=== PATIENT | female | born 1960 | race Caucasian/White ===

== ENCOUNTER 2024-02-03 10:42 | Inpatient (IN) ==
[2024-02-03] MEDS: SODIUM CHLORIDE 0.9% 1,000 ML IV STA (11:02)
--- NOTE | 2024-02-03 11:06 | Emergency Department Note ---
Impression & Plan Acute cholecystitis, Right upper quadrant abdominal pain ED Provider Note NAME: JEMIMA MASTERS AGE: 63 SEX: F : 1960 ARRIVES VIA: Walk-In INFORMANT: Patient, ED PROVIDER(S): Jairon Ramírez DO CHIEF COMPLAINT: Abdominal pain HPI: The patient is a 63-year-old female who presented to the emergency department for an evaluation of abdominal pain. The patient describes upper abdominal pain right greater than left. She states the pain does somewhat come up into her chest. She denies having any vomiting or. She denies having any black or tarry stools. The patient called her family doctor and was told to go directly to the emergency department. She denies having any lower GI bleeding. She said no diarrhea. The patient still has her gallbladder. She states the pain is not worsened with exertion or taking a deep breath. ROS: See above HPI for pertinent positives & negatives. A total of 10 systems reviewed and were otherwise negative. PAST MEDICAL HISTORY: See Below PAST SURGICAL HISTORY: See Below FAMILY HISTORY: See Below SOCIAL HISTORY: See Below HOME MEDICATIONS: See Below ALLERGIES: See Below VITALS: See Below PHYSICAL EXAMINATION: GENERAL: The patient is awake and alert. The patient is very anxious and uncomfortable appearing. EYES: The conjunctivae are clear. The pupils are round and reactive. EARS, NOSE, MOUTH AND THROAT: The nose is without any evidence of any deformity. NECK: The neck is nontender and supple. RESPIRATORY: Normal respiratory effort is noted there is no evidence of wheezing rhonchi or rales CARDIOVASCULAR: Regular rate and rhythm noted there no murmurs rubs or gallops normal S1 normal S2. GASTROINTESTINAL: The abdomen is soft and mildly distended. There is right upper quadrant tenderness palpation which is moderate. MUSCULOSKELETAL/EXTREMITIES: There is no evidence of gross deformity full range of motion is noted in the hips and shoulders. SKIN: There is no obvious evidence of any rash. There are no petechiae, pallor or cyanosis noted. NEUROLOGIC: Patient is awake alert and oriented x3 MEDICAL DECISION MAKING: The patient is a 63-year-old female who presented to the emergency department for abdominal pain. The patient started having right upper quadrant abdominal pain early this morning. The patient's history and physical exam appear to be consistent with cholecystitis. Radiographic studies were obtained including an ultrasound which does appear to be consistent with cholecystitis. The patient had no ductal dilatation. Bilirubin was normal. I discussed the patient's laboratory and radiographic studies with her. I discussed her condition with the on-call general surgical group as well as the on-call [facility] hospitalist group. They have agreed to evaluate the patient in the emergency department for further management and disposition. The patient was treated with IV antibiotics and IV fluids. She was also treated with IV pain medication and antiemetics. Triage Nursing notes reviewed. Prior medical records reviewed Vital Signs: reviewed and remarkable for elevated blood pressure. Differential diagnosis: Etiologies such as appendicitis, diverticulitis, obstruction, inflammatory bowel disease, renal colic, PUD, biliary pathology, pancreatitis, mesenteric ischemia, aortic pathology, infections, genitourinary, UTI, perforated viscus, as well as others were entertained. ER treatment provided: See below Diagnostics interpreted by me: ECG: EKG was obtained in the emergency department. My interpretation is normal sinus rhythm at 77 bpm. There is no ectopy. There is no acute ST segment abnormalities noted. No previous tracing was available Cardiac Monitoring: An order was placed for continuous cardiac monitoring. The monitor shows a rate of 74 bpm with sinus rhythm. Laboratory studies: As stated above and show below. Imaging studies: See below. Radiographic imaging was reviewed by myself Consultation(s): I discussed this case with Lilli who is on-call for the general surgical group. She is agreed to evaluate the patient in the emergency department. I discussed this case with Tereza who is on-call for the [facility] hospitalist group. Past Med/Surg History Medical History (Updated 02/03/24 @ 14:41 by Jairon Ramírez DO) History of melanoma History of endometrial biopsy BENIGN Osteoarthritis Overactive bladder Diabetes mellitus, type 2 Hypothyroidism History of skin cancer Low iron Hypertension Hyperlipidemia Sleep apnea CPAP Surgical History History of colonoscopy History of tooth extraction History of tonsillectomy and adenoidectomy History of nasal cauterization History of nasal surgery History of bladder surgery BLADDER SLING Family History Mother Alzheimer disease Family history of diabetes mellitus Father Family history of diabetes mellitus Other No family history of adverse response to anesthesia Social History Smoking Status: Never smoker Second Hand Exposure: Yes; Hx Alcohol Use: Yes Preferred Language: Greenlandic Seed Technician Required: No Beliefs That Will Affect Care: None Current Living Situation: Alone Feels Safe at Home: Yes Assistive Devices: CPAP and Glasses Allergies Allergies Allergy/AdvReac Type Severity Reaction Status Date / Time No Known Drug Allergies Allergy Verified 03/06/21 13:00 Home Meds Home Medications Medication Instructions Recorded Confirmed aspirin 81 mg tablet 81 mg PO QAM 01/10/20 02/03/24 levothyroxine 50 mcg tablet 50 mcg PO QAM 01/10/20 02/03/24 lisinopril 10 mg tablet 10 mg PO QAM 01/10/20 02/03/24 atorvastatin 20 mg tablet 20 mg PO HS 03/06/21 02/03/24 cholecalciferol (vitamin D3) 25 25 mcg PO QAM 03/06/21 02/03/24 mcg (1,000 unit) tablet (Vitamin D3) estradiol 4 mcg vaginal insert 4 mcg vaginal DAILY 02/03/24 02/03/24 Results & Data (ED) Vital Signs Vital Signs - 24 hr 02/03/24 10:45 02/03/24 13:13 02/03/24 13:57 Temperature 36.2 C L Temperature Source Temporal Artery Scan Pulse Rate 78 78 Pulse Rate [Apical] 74 Pulse Rhythm Regular Pulse Strength Normal Respiratory Rate 20 20 Respiratory Effort / Characteristics Non-Labored Spontaneous Non-Labored Spontaneous Respiratory Depth Normal Normal Respiratory Pattern Regular Blood Pressure 145/63 H Blood Pressure [Left Arm] 163/73 H Blood Pressure Mean 90 Blood Pressure Mean [Left Arm] 103 Blood Pressure Position Sitting Pulse Oximetry 98 97 Oxygen Delivery Method Room Air Room Air Sepsis Recent Fever Within 48 Hours No Sepsis New/Unexplained Change in Mental Status No Sepsis Action Taken by Nursing No Action Required Home Medications Current Medication List: was personally reviewed by me Laboratory Data Attestation: I reviewed the patient's lab results. 02/03/24 10:51 02/03/24 10:51 Lab Results 02/03/24 Range/Units 10:51 WBC 14.56 H (4.8-10.8) K/ul RBC 4.45 (4.20-5.40) M/uL Hgb 12.8 (12.0-16.0) g/dl Hct 38.9 (37.0-47.0) % MCV 87.4 (80.0-100.0) fL MCH 28.8 (25.0-34.0) pg MCHC 32.9 (32.0-36.0) g/dL RDW Std Deviation 44.2 (36.4-46.3) fL RDW Coeff of Hermes 13.8 (11.5-14.5) % Plt Count 412 H (130-400) K/uL MPV 9.7 (9.4-12.4) fL Immature Gran % (Auto) 0.4 % Neut % (Auto) 83.6 % Lymph % (Auto) 11.1 % [place] % (Auto) 4.3 % Eos % (Auto) 0.2 % Baso % (Auto) 0.4 % Neut # (Auto) 12.17 H (1.40-6.50) K/uL Lymph # (Auto) 1.61 (1.20-3.40) K/uL [place] # (Auto) 0.63 H (0.11-0.59) K/uL Eos # (Auto) 0.03 (0.00-0.50) K/uL Baso # (Auto) 0.06 (0.00-0.20) K/uL Immature Gran # (Auto) 0.06 (0.01-0.20) K/uL Sodium 136 (136-145) mmol/L Potassium 4.0 (3.5-5.1) mmol/L Chloride 105 (98-107) mmol/L Carbon Dioxide 24 (21-32) mmol/L Anion Gap 7 (3-11) BUN 18 (6-23) mg/dl Creatinine 0.74 (0.6-1.2) mg/dl Est Cr Clr Drug Dosing 76.1 ml/min Est GFR ( Amer) 98.5 ml/min Est GFR (Non-Af Amer) 85.0 ml/min BUN/Creatinine Ratio 24.3 H (10-20) Glucose 155 H (70-99(Fasting)) mg/dl Calcium 9.3 (8.6-10.3) mg/dl Total Bilirubin 0.4 (0.2-1.0) mg/dl AST 14 (13-39) U/L ALT 12 (7-52) U/L Alkaline Phosphatase 99 (34-104) U/L Troponin I High Sens 3.3 (0-14) pg/ml Total Protein 7.4 (6.0-8.3) gm/dl Albumin 4.2 (3.4-5.0) gm/dl Globulin 3.2 (2.5-4.0) gm/dl Albumin/Globulin Ratio 1.3 (0.9-2) Lipase 10 L (11-82) U/L Urine Color Dark Yellow Urine Appearance Turbid A (Clear) Urine pH 5.5 (4.5-7.5) Ur Specific [place] 1.024 (1.000-1.030) Urine Protein Negative (Negative) Urine Glucose (UA) Negative (Negative) Urine Ketones Trace H (Negative) Urine Blood Negative (Negative) Urine Nitrite Negative (Negative) Urine Bilirubin Negative (Negative) Urine Urobilinogen Negative (Negative) Ur Leukocyte Esterase Negative (Negative) Urine WBC (Auto) 0-5 (0-5) /hpf Urine RBC (Auto) 3-5 H (0-2) /hpf U Hyaline Cast (Auto) 0-2 (0-2) /lpf U Epithel Cells (Auto) 3-5 H (0-2) /hpf Urine Bacteria (Auto) None Seen (None Seen) Administered Medications Discontinued Medications Fentanyl Citrate (Fentanyl Citrate Pf 100 Mcg/2 Ml Vial) 50 mcg IV Q15M PRN PRN Reason: Pain Stop: 02/17/24 12:52 Last Admin: 02/03/24 13:01 Dose: 50 mcg Documented By: HS Sodium Chloride (Nss) 1,000 mls @ 999 mls/hr IV .Q1H1M STA Stop: 02/03/24 11:59 Last Infusion: 02/03/24 12:03 Dose: Infused Documented By: Admin: 02/03/24 11:02 Dose: 999 mls/hr Documented By: HS Cefoxitin Sodium (Mefoxin) 2,000 mg in 60 mls @ 100 mls/hr IV NOW STA Stop: 02/03/24 13:28 Last Infusion: 02/03/24 13:44 Dose: Infused Documented By: Admin: 02/03/24 13:01 Dose: 100 mls/hr Documented By: HS Ondansetron HCl (Ondansetron Inj 2 Mg/Ml 2 Ml Vial) 4 mg IV NOW STA Stop: 02/03/24 12:54 Last Admin: 02/03/24 13:01 Dose: 4 mg Documented By: Imaging Data Attestation: I personally reviewed and interpreted this imaging study as follows: My Impression: 1 view chest x-ray was obtained in the emergency department. My interpretation is no free air or infiltrate, final report below. KUB was obtained in the emergency department my interpretation is no free air or signs of bowel obstruction, final report below Radiologist's Impression: Chest X-Ray 02/03/24 11:00 SINGLE VIEW CHEST CLINICAL HISTORY: Upper abdominal pain. Atypical chest pain. FINDINGS: An AP, portable, upright chest radiograph is obtained. No prior studies are available for comparison at the time of dictation. The cardiomediastinal silhouette is unremarkable. The lungs and pleural spaces are clear. No pneumothorax is seen. The bony thorax is grossly intact. IMPRESSION: No active disease in the chest. ACT 112: Negative or not required by law. Electronically signed by: Tamir Wyatt M.D. 02/03/2024 11:22 AM Gallbladder Ultrasound 02/03/24 11:00 ABDOMINAL ULTRASOUND, RIGHT UPPER QUADRANT HISTORY: Nausea. Vomiting. Generalized abdominal pain.. COMPARISON: None. FINDINGS: Pancreas: The pancreatic tail is obscured by overlying bowel gas. The remaining portions of the pancreas are within normal limits. Liver: Unremarkable. Gallbladder: Multiple stones. Borderline gallbladder wall thickening at 3 mm. The technologist reported a positive sonographic Lopez sign. Therefore, this raises the possibility of an early acute cholecystitis. CBD: 3 mm. Right kidney: No hydronephrosis. IMPRESSION: 1. Multiple gallstones with borderline gallbladder wall thickening. The technologist reported positive sonographic Lopez sign. Therefore, this raises the possibility of an early acute cholecystitis. Surgical consultation and/or nuclear medicine HIDA scan can be used for further evaluation. 2. Normal caliber common bile duct. ACT 112: Negative or not required by law. Electronically signed by: Karl Segundo M.D. 02/03/2024 12:14 PM KUB X-Ray 02/03/24 11:00 KUB HISTORY: Acute right upper quadrant abdominal pain RU pain COMPARISON: None. FINDINGS: Mild gaseous distention of the stomach. Moderate fecal retention in the right hemicolon. Nonobstructive bowel gas pattern. Renal shadows are obscured by bowel gas. No renal calculi. No ureteral calculi. No pneumoperitoneum or pneumatosis. No fracture. IMPRESSION: Nonobstructive bowel gas pattern. ACT 112: Negative or not required by law. The above report was generated using voice recognition software. It may contain grammatical, syntax or spelling errors. Electronically signed by: Cristobal Sellers M.D. 02/03/2024 12:00 PM Discharge Plan Visit Data Chief Complaint: Abdominal Pain Stated Complaint: CHEST PAIN, CHILLS, NAUSEA ED Provider: Jairon Ramírez Discharge Problem: Acute cholecystitis, Right upper quadrant abdominal pain Patient Disposition: Being Evaluated by Hospitalist Forms Stand Alone Forms: My [facility] Prescriptions Prescriptions: No Action aspirin 81 mg tablet 81 mg PO QAM lisinopril 10 mg tablet 10 mg PO QAM levothyroxine 50 mcg tablet 50 mcg PO QAM atorvastatin 20 mg Tablet 20 mg PO HS cholecalciferol (vitamin D3) [Vitamin D3] 25 mcg (1,000 unit) Tablet 25 mcg PO QAM estradiol 4 mcg Insert 4 mcg VAGINAL DAILY Referrals Referrals: Elan Martin MD [Outside Practitioners] -
[2024-02-03 11:18] LABS: Basophils # (auto) 0.06 K/uL (0.00-0.20); Basophils % (auto) 0.4 %; Eosinophils # (auto) 0.03 K/uL (0.00-0.50); Eosinophils % (auto) 0.2 %; Hematocrit (blood only) 38.9 % (37.0-47.0); Hemoglobin 12.8 g/dl (12.0-16.0); Immature Granulocytes # (auto) 0.06 K/uL (0.01-0.20); Immature Granulocytes % (auto) 0.4 %; Lymphocytes # (auto) 1.61 K/uL (1.20-3.40); Lymphocytes % (auto) 11.1 %; Mean Corpuscular Hemoglobin 28.8 pg (25.0-34.0); Mean Corpuscular Hgb Conc 32.9 g/dL (32.0-36.0); Mean Corpuscular Volume 87.4 fL (80.0-100.0); Mean Platelet Volume 9.7 fL (9.4-12.4); Monocytes # (auto) 0.63 K/uL (0.11-0.59); Monocytes % (auto) 4.3 %; Neutrophils # (auto) 12.17 K/uL (1.40-6.50); Neutrophils % (auto) 83.6 %; Platelet Count 412 K/uL (130-400); RDW Coefficient of Variation 13.8 % (11.5-14.5); RDW Standard Deviation 44.2 fL (36.4-46.3); Red Blood Count 4.45 M/uL (4.20-5.40); White Blood Count 14.56 K/ul (4.8-10.8)
--- NOTE | 2024-02-03 11:24 | XRay Report ---
SINGLE VIEW CHEST CLINICAL HISTORY: Upper abdominal pain. Atypical chest pain. FINDINGS: An AP, portable, upright chest radiograph is obtained. No prior studies are available for c omparison at the time of dictation. The cardiomediastinal silhouette is unremarkable. The lungs and p leural spaces are clear. No pneumothorax is seen. The bony thorax is grossly intact. IMPRESSION: No active disease in the chest. ACT 112: Negative or not required by law. Electronically signed by: Tamir Wyatt M.D. 02/03/2024 11:22 AM
[2024-02-03 11:38] LABS: Albumin Globulin Ratio 1.3 (0.9-2); Albumin Level 4.2 gm/dl (3.4-5.0); BUN Creatinine Ratio 24.3 (10-20); Bilirubin,Total 0.4 mg/dl (0.2-1.0); Calcium 9.3 mg/dl (8.6-10.3); Creatinine Clr Calc Pharmacy 76.1 ml/min; Est GFR (African American) 98.5 ml/min; Globulin 3.2 gm/dl (2.5-4.0); Total Protein 7.4 gm/dl (6.0-8.3)
[2024-02-03 11:43] LABS: Troponin I High Sensitivity 3.3 pg/ml (0-14)
--- NOTE | 2024-02-03 12:02 | XRay Report ---
KUB HISTORY: Acute right upper quadrant abdominal pain RU pain COMPARISON: None. FINDINGS: Mild gaseous distention of the stomach. Moderate fecal retention in the right hemicolon. No nobstructive bowel gas pattern. Renal shadows are obscured by bowel gas. No renal calculi. No ureter al calculi. No pneumoperitoneum or pneumatosis. No fracture. IMPRESSION: Nonobstructive bowel gas pattern. ACT 112: Negative or not required by law. The above report was generated using voice recognition software. It may contain grammatical, syntax o r spelling errors. Electronically signed by: Cristobal Sellers M.D. 02/03/2024 12:00 PM
[2024-02-03 12:11] LABS: Appearance Urine Turbid (Clear); Bacteria Urine Automated None Seen (None Seen); Bilirubin Urine Negative (Negative); Blood Urine Negative (Negative); Cast Urine Automated 0-2 /lpf (0-2); Color Urine Dark Yellow; Glucose Urine UA Negative (Negative); Ketones Urine Trace (Negative); Leukocyte Esterase Urine Negative (Negative); Nitrite Urine Negative (Negative); Protein Urine Negative (Negative); Specific Gravity Urine 1.024 (1.000-1.030); Urobilinogen Urine Negative (Negative); WBC Urine Automated 0-5 /hpf (0-5); pH Urine 5.5 (4.5-7.5)
--- NOTE | 2024-02-03 12:15 | Ultrasound Report ---
ABDOMINAL ULTRASOUND, RIGHT UPPER QUADRANT HISTORY: Nausea. Vomiting. Generalized abdominal pain.. COMPARISON: None. FINDINGS: Pancreas: The pancreatic tail is obscured by overlying bowel gas. The remaining portions of the pancr eas are within normal limits. Liver: Unremarkable. Gallbladder: Multiple stones. Borderline gallbladder wall thickening at 3 mm. The technologist report ed a positive sonographic Lopez sign. Therefore, this raises the possibility of an early acute osmin cystitis. CBD: 3 mm. Right kidney: No hydronephrosis. IMPRESSION: 1. Multiple gallstones with borderline gallbladder wall thickening. The technologist reported positiv e sonographic Lopez sign. Therefore, this raises the possibility of an early acute cholecystitis. Collins rgical consultation and/or nuclear medicine HIDA scan can be used for further evaluation. 2. Normal caliber common bile duct. ACT 112: Negative or not required by law. Electronically signed by: Karl Segundo M.D. 02/03/2024 12:14 PM
[2024-02-03] MEDS: fentaNYL citrate PF 100 MCG/2 ML VIAL IV PRN (13:01)
[2024-02-03] MEDS: ONDANSETRON INJ 2 MG/ML 2 ML VIAL IV STA (13:01)
[2024-02-03] MEDS: cefOXitin 2,000 MG/60 ML BAG IV STA (13:01)
--- NOTE | 2024-02-03 13:46 | History & Physical Report ---
Date of Service February 03, 2024 Assessment & Plan (1) Acute cholecystitis: Plan: This is a 63[facility] F who [facility] PMH of hypothyroidism, HTN, diet controlled DM II, ERASMO on CPAP and other medical problems listed below who presents with abdominal pain started around 0330am. Multiple gallstones, possible acute cholecystitis Sudden onset RUQ pain since 330AM with N/V Gallbladder u/s wit: 1. Multiple gallstones with borderline gallbladder wall thickening. The technologist reported positive sonographic Lopez sign. Therefore, this raises the possibility of an early acute cholecystitis. Surgical consultation and/or nuclear medicine HIDA scan can be used for further evaluation. 2. Normal caliber common bile duct. Nonobstructive bowel gas pattern on KUB Admitted EKG with NSR, no ST changes. CXR without acute cardiopulmonary abnormalities, active at baseline ED provider discussed with Dr. Serrato mental hygiene consultant for gen surg, who plans for possible OR tomorrow for cholecystectomy, will evaluate Keep NPO, IV fluids, pain control, cont. empiric abx with Rocephin (2) Diabetes mellitus, type 2: Plan: A1c unknown, pending for AM Diet controlled, no longer taking metformin SSI while in-patient BSG AC HS or Q6H while NPO (3) Hypothyroidism: Plan: Continue levothyroxine (4) Hypertension: Plan: Elevated 2/2 pain, optimize regimen. Continue home lisinopril (took this AM) (5) Hyperlipidemia: Plan: Statin HS DVT Ppx: SCDs for now Code status: FULL PCP: [facility] Dis[facility]: Admitted to med/surg, plans for possible OR tomorrow Patient seen in collaboration with Dr. Rojas. Please see addendum. I spent a total of 75 minutes coordinating, documenting, and providing care for this patient excluding time spent in the performance of separately billed services. History of Present Illness Chief Complaint: abd pain Primary Care Provider: NO PCP This is a 63yo F who [facility] with a PMH of hypothyroidism, HTN, diet controlled DM II, ERASMO on CPAP and other medical problems listed below who presents with abdominal pain started around 0330am. Abdominal pain is sharp, constant and located in RUQ radiating across to left side, described as persistent. + Chills. Decreased appetite. Vomited this AM once but not since arrival. Still nauseous. No CP, SOB, dysuria, diarrhea or constipation. Formed bowel movement this morning. History of bladder surgery. Denies PO intake today. Still in pain following fentanyl given in ED. Allergies Allergy/AdvReac Type Severity Reaction Status Date / Time No Known Drug Allergies Allergy Verified 03/06/21 13:00 Home Medications Medication Instructions Recorded Confirmed Type aspirin 81 mg tablet 81 mg PO QAM 01/10/20 02/03/24 History levothyroxine 50 mcg tablet 50 mcg PO QAM 01/10/20 02/03/24 History lisinopril 10 mg tablet 10 mg PO QAM 01/10/20 02/03/24 History atorvastatin 20 mg tablet 20 mg PO HS 03/06/21 02/03/24 History cholecalciferol (vitamin D3) 25 25 mcg PO QAM 03/06/21 02/03/24 History mcg (1,000 unit) tablet (Vitamin D3) estradiol 4 mcg vaginal insert 4 mcg vaginal DAILY 02/03/24 02/03/24 History Past Med/Surg History Medical History (Updated 02/03/24 @ 14:41 by Jairon Ramírez DO) History of melanoma History of endometrial biopsy BENIGN Osteoarthritis Overactive bladder Diabetes mellitus, type 2 Hypothyroidism History of skin cancer Low iron Hypertension Hyperlipidemia Sleep apnea CPAP Surgical History History of colonoscopy History of tooth extraction History of tonsillectomy and adenoidectomy History of nasal cauterization History of nasal surgery History of bladder surgery BLADDER SLING Family History Mother Alzheimer disease Family history of diabetes mellitus Father Family history of diabetes mellitus Other No family history of adverse response to anesthesia Social History Smoking Status: Never smoker Second Hand Exposure: Yes; Hx Alcohol Use: Yes 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 Physical Exam Physical Exam: Please see Dr. Rojas' addendum for physical exam. Results & Data Results & Data Vital Signs (Past 12 Hours) Vital Signs Temp Pulse Resp BP Pulse Ox O2 Del Method 02/03/24 13:13 78 02/03/24 10:45 36.2 C L 78 20 145/63 H 98 Room Air Laboratory Results Short CBC 02/03/24 Range/Units 10:51 WBC 14.56 H (4.8-10.8) K/ul Hgb 12.8 (12.0-16.0) g/dl Hct 38.9 (37.0-47.0) % Plt Count 412 H (130-400) K/uL BMP 02/03/24 10:51 Sodium 136 Potassium 4.0 Chloride 105 Carbon Dioxide 24 BUN 18 Creatinine 0.74 Glucose 155 H Calcium 9.3 Liver Function 02/03/24 Range/Units 10:51 Total Bilirubin 0.4 (0.2-1.0) mg/dl AST 14 (13-39) U/L ALT 12 (7-52) U/L Alkaline Phosphatase 99 (34-104) U/L Albumin 4.2 (3.4-5.0) gm/dl Urine 02/03/24 Range/Units 10:51 Urine Color Dark Yellow Urine Appearance Turbid A (Clear) Urine pH 5.5 (4.5-7.5) Ur Specific [place] 1.024 (1.000-1.030) Urine Protein Negative (Negative) Urine Glucose (UA) Negative (Negative) Diagnostic Findings Chest X-Ray 02/03/24 11:00 SINGLE VIEW CHEST CLINICAL HISTORY: Upper abdominal pain. Atypical chest pain. FINDINGS: An AP, portable, upright chest radiograph is obtained. No prior studies are available for comparison at the time of dictation. The cardiomediastinal silhouette is unremarkable. The lungs and pleural spaces are clear. No pneumothorax is seen. The bony thorax is grossly intact. IMPRESSION: No active disease in the chest. ACT 112: Negative or not required by law. Electronically signed by: Tamir Wyatt M.D. 02/03/2024 11:22 AM Gallbladder Ultrasound 02/03/24 11:00 ABDOMINAL ULTRASOUND, RIGHT UPPER QUADRANT HISTORY: Nausea. Vomiting. Generalized abdominal pain.. COMPARISON: None. FINDINGS: Pancreas: The pancreatic tail is obscured by overlying bowel gas. The remaining portions of the pancreas are within normal limits. Liver: Unremarkable. Gallbladder: Multiple stones. Borderline gallbladder wall thickening at 3 mm. The technologist reported a positive sonographic Lopez sign. Therefore, this r aises the possibility of an early acute cholecystitis. CBD: 3 mm. Right kidney: No hydronephrosis. IMPRESSION: 1. Multiple gallstones with borderline gallbladder wall thickening. The technolo gist reported positive sonographic Lopez sign. Therefore, this raises the possibility of an early acute cholecystitis. Surgical consultation and/or nuclear medicine HIDA scan can be used for further evaluation. 2. Normal caliber common bile duct. ACT 112: Negative or not required by law. Electronically signed by: Karl Segundo M.D. 02/03/2024 12:14 PM KUB X-Ray 02/03/24 11:00 KUB HISTORY: Acute right upper quadrant abdominal pain RU pain COMPARISON: None. FINDINGS: Mild gaseous distention of the stomach. Moderate fecal retention in the right hemicolon. Nonobstructive bowel gas pattern. Renal shadows are obscured by bowel gas. No renal calculi. No ureteral calculi. No pneumoperitoneum or pneumatosis. No fracture. IMPRESSION: Nonobstructive bowel gas pattern. ACT 112: Negative or not required by law. The above report was generated using voice recognition software. It may contain grammatical, syntax or spelling errors. Electronically signed by: Cristobal Sellers M.D. 02/03/2024 12:00 PM Supervising Physician Co-Signing Physician Notes I have seen and discussed the case with the collaborating advanced practitioner. I agree with the above H&P. I have reviewed and confirmed the patients medical history, the findings on physical examination, and the patients diagnosis and treatment plan with Robbie GARCIA and agree with the information documented. In short, Ms. Thomson is a 63 year old woman with hx of HTN, HLD, prior service who is admitted for RUQ c/w cholecystitis. Patient states that she has never experienced epigastric pain until suddenly around 3am this morning associated with nausea and vomiting. GENERAL APPEARANCE: AxOx4, mild distress/uncomfortable HEENT: NC, AT. MMM. EOMI, clear conjunctiva, oropharynx clear. NECK: Supple without lymphadenopathy. No stiffness or restricted ROM. HEART: Normal rate and regular rhythm, normal S1/S1, no m/r/g LUNGS: CTAB, moving air well. No crackles or wheezes are heard. ABDOMEN: Soft, nondistended with good bowel sounds heard, tenderness along ROX and epigastrium BACK: No CVAT, no obvious deformity. EXTREMITIES: Without cyanosis, clubbing or edema. NEUROLOGICAL: Grossly nonfocal. Alert and oriented, moving all 4 extremities. CN not formally tested but appear grossly intact. Skin: Warm and dry without any rash. #Acute cholecystitis -continue w/ CTX and flagyl -NPO, IVF -Gen surg consult, likely to OR in am Rest of plan as above I spent a total of minutes coordinating, documenting, and providing care for this patient excluding time spent in the performance of separately billed services. All of the aforementioned completed outside of collaborating with the assigned advanced practitioner for a full treatment plan. I have reviewed the advanced practitioner's documentation, and I agree with, and take responsibility for the plan of care
[2024-02-03] MEDS ORDERED: GLUCOSE 10 TAB/TUBE PO PRN (14:07)
[2024-02-03] MEDS ORDERED: GLUCOSE 40% GEL 15 GM TUBE PO PRN (14:07)
[2024-02-03] MEDS ORDERED: GLUCAGON FOR INJ 1 MG VIAL SQ PRN (14:07)
[2024-02-03] MEDS ORDERED: CARBOHYDRATES FOR HYPOGLYCEMIA PO PRN (14:07)
[2024-02-03] MEDS ORDERED: DEXTROSE 50% 50 ML SYRINGE IV PRN (14:07)
[2024-02-03] MEDS: SODIUM CHLORIDE 0.9% 1,000 ML IV SCH (14:42)
[2024-02-03] MEDS: ACETAMINOPHEN 1,000 MG/100 ML VIAL IV PRN (14:45)
[2024-02-03] MEDS: cefTRIAXone SODIUM 2,000 MG/50 ML BAG IV SCH (15:11)
--- NOTE | 2024-02-03 16:12 | Electrocardiogram Report ---
Test Reason : Blood Pressure : / mmHG Vent. Rate : 077 BPM Atrial Rate : 077 BPM P-R Int : 172 ms QRS Dur : 074 ms QT Int : 372 ms P-R-T Axes : 047 014 059 degrees QTc Int : 420 ms Normal sinus rhythm Diffuse Nonspecific ST abnormality Abnormal ECG No previous ECGs available Confirmed by Bryan Bhakta ([id number]) on 02/03/2024 4:11:48 PM Referred By: Confirmed By:Bryan Bhakta
[2024-02-03] MEDS: metroNIDAZOLE 500 MG/100 ML BAG IV STA (16:32)
[2024-02-03] MEDS: HYDROmorphone INJ 0.5 MG/0.5 ML SYR IV PRN (16:32)
--- NOTE | 2024-02-03 16:43 | Surgery Consultation ---
Date of Consultation February 03, 2024 Assessment & Plan (1) Right upper quadrant abdominal pain: (2) Acute cholecystitis: 63 year-old female with sudden onset of upper abdominal pain with nausea and vomiting this morning. Ultrasound with cholelithiasis and mild gallbladder wall thickening, positive Muprhy's sign on examination and leukocytosis of 14k. T. bili, lfts, lipase all wnl. CBD measuring 3 mm on ultrasound. Plan: Discussed with patient indication for laparoscopic cholecystectomy based on imaging and examination findings. Discussed procedure, risks, expected recovery and restrictions. Will plan for OR tomorrow after at [address] Echevarria. Medicine admit, IV fluids, IV pain management as needed, antiemetics as needed, NPO after midnight. Discussed with Dr. echevarria who agrees with above. History of Present Illness Reason for Consultation: upper abdominal pain Requesting Physician: Tereza Avalos PA-C Attending Physician: Dr. Lowry History of Present Illness Sushma us a 63 year-old female with history of hypothyroidism, hyperlipidemia, HTN, Type 2 diabetes who presented to ED with complaint of sudden onsent of upper abdominal pain with associated nausea and vomiting that woke her up at 3:30 this morning. No associated fever or chills. No chest pain or shortness of breath. No changes in bowel habits, blood in stools, difficulty urinating or blood in urine. Pain rated 10/10 on presentation to ED. Feels like band of pain in upper abdomen. No history of prior gallbladder issues. Hisotry of bladder sling procedure . No blood thinning agents. Currently rating pain about 7/10, seems to be increasing again. Nausea present still but controlled. Allergies Allergy/AdvReac Type Severity Reaction Status Date / Time No Known Drug Allergies Allergy Verified 03/06/21 13:00 Home Medications Medication Instructions Recorded Confirmed Type aspirin 81 mg tablet 81 mg PO QAM 01/10/20 02/03/24 History levothyroxine 50 mcg tablet 50 mcg PO QAM 01/10/20 02/03/24 History lisinopril 10 mg tablet 10 mg PO QAM 01/10/20 02/03/24 History atorvastatin 20 mg tablet 20 mg PO HS 03/06/21 02/03/24 History cholecalciferol (vitamin D3) 25 25 mcg PO QAM 03/06/21 02/03/24 History mcg (1,000 unit) tablet (Vitamin D3) estradiol 4 mcg vaginal insert 4 mcg vaginal DAILY 02/03/24 02/03/24 History Patient History Medical History (Updated 02/03/24 @ 14:41 by Jairon Ramírez DO) History of melanoma History of endometrial biopsy BENIGN Osteoarthritis Overactive bladder Diabetes mellitus, type 2 Hypothyroidism History of skin cancer Low iron Hypertension Hyperlipidemia Sleep apnea CPAP Surgical History History of colonoscopy History of tooth extraction History of tonsillectomy and adenoidectomy History of nasal cauterization History of nasal surgery History of bladder surgery BLADDER SLING Family History Mother Alzheimer disease Family history of diabetes mellitus Father Family history of diabetes mellitus Other No family history of adverse response to anesthesia Social History Smoking Status: Never smoker Second Hand Exposure: Yes; Hx Alcohol Use: Yes Preferred Language: [place] Skip Pitman Required: No Beliefs That Will Affect Care: None Current Living Situation: Alone Feels Safe at Home: Yes Assistive Devices: CPAP and Glasses Physical Exam Constitutional: WD/WN, vitals as above + obese, cooperative and comfortable; no acute distress, not ill appearing and not in distress Respiratory: normal respiratory effort, lungs clear to auscultation Cardiovascular: RRR, no murmur, no edema Gastrointestinal (Abdomen): Inspection/Auscultation: abdomen normal to inspection; abdomen not distended Percussion/Palpation: + abdomen tender (RUQ) and abdomen soft; no guarding, abdomen not rigid and abdomen not firm Skin: no rashes, warm and dry no jaundice Psychiatric: Orientation: alert and oriented x 3 Results & Data Vital Signs (Past 12 Hours) Vital Signs Temp Pulse Pulse Resp BP BP Pulse Ox 02/03/24 16:36 78 20 168/74 H 98 02/03/24 15:41 97 02/03/24 13:57 74 20 163/73 H 97 02/03/24 13:13 78 02/03/24 10:45 36.2 C L 78 20 145/63 H 98 O2 Del Method 02/03/24 16:36 Room Air 02/03/24 15:41 Room Air 02/03/24 13:57 Room Air 02/03/24 13:13 02/03/24 10:45 Room Air Laboratory Results 02/03/24 02/03/24 Range/Units 16:24 10:51 WBC 14.56 H (4.8-10.8) K/ul RBC 4.45 (4.20-5.40) M/uL Hgb 12.8 (12.0-16.0) g/dl Hct 38.9 (37.0-47.0) % MCV 87.4 (80.0-100.0) fL MCH 28.8 (25.0-34.0) pg MCHC 32.9 (32.0-36.0) g/dL RDW Std Deviation 44.2 (36.4-46.3) fL RDW Coeff of Hermes 13.8 (11.5-14.5) % Plt Count 412 H (130-400) K/uL MPV 9.7 (9.4-12.4) fL Immature Gran % (Auto) 0.4 % Neut % (Auto) 83.6 % Lymph % (Auto) 11.1 % [place] % (Auto) 4.3 % Eos % (Auto) 0.2 % Baso % (Auto) 0.4 % Neut # (Auto) 12.17 H (1.40-6.50) K/uL Lymph # (Auto) 1.61 (1.20-3.40) K/uL [place] # (Auto) 0.63 H (0.11-0.59) K/uL Eos # (Auto) 0.03 (0.00-0.50) K/uL Baso # (Auto) 0.06 (0.00-0.20) K/uL Immature Gran # (Auto) 0.06 (0.01-0.20) K/uL Sodium 136 (136-145) mmol/L Potassium 4.0 (3.5-5.1) mmol/L Chloride 105 (98-107) mmol/L Carbon Dioxide 24 (21-32) mmol/L Anion Gap 7 (3-11) BUN 18 (6-23) mg/dl Creatinine 0.74 (0.6-1.2) mg/dl Est Cr Clr Drug Dosing 76.1 ml/min Est GFR ( Amer) 98.5 ml/min Est GFR (Non-Af Amer) 85.0 ml/min BUN/Creatinine Ratio 24.3 H (10-20) Glucose 155 H (70-99(Fasting)) mg/dl POC Glucose 115 H (70-99) mg/dl Calcium 9.3 (8.6-10.3) mg/dl Total Bilirubin 0.4 (0.2-1.0) mg/dl AST 14 (13-39) U/L ALT 12 (7-52) U/L Alkaline Phosphatase 99 (34-104) U/L Troponin I High Sens 3.3 (0-14) pg/ml Total Protein 7.4 (6.0-8.3) gm/dl Albumin 4.2 (3.4-5.0) gm/dl Globulin 3.2 (2.5-4.0) gm/dl Albumin/Globulin Ratio 1.3 (0.9-2) Lipase 10 L (11-82) U/L Urine Color Dark Yellow Urine Appearance Turbid A (Clear) Urine pH 5.5 (4.5-7.5) Ur Specific [place] 1.024 (1.000-1.030) Urine Protein Negative (Negative) Urine Glucose (UA) Negative (Negative) Urine Ketones Trace H (Negative) Urine Blood Negative (Negative) Urine Nitrite Negative (Negative) Urine Bilirubin Negative (Negative) Urine Urobilinogen Negative (Negative) Ur Leukocyte Esterase Negative (Negative) Urine WBC (Auto) 0-5 (0-5) /hpf Urine RBC (Auto) 3-5 H (0-2) /hpf U Hyaline Cast (Auto) 0-2 (0-2) /lpf U Epithel Cells (Auto) 3-5 H (0-2) /hpf Urine Bacteria (Auto) None Seen (None Seen) Diagnostic Findings ABDOMINAL ULTRASOUND, RIGHT UPPER QUADRANT HISTORY: Nausea. Vomiting. Generalized abdominal pain.. COMPARISON: None. FINDINGS: Pancreas: The pancreatic tail is obscured by overlying bowel gas. The remaining portions of the pancreas are within normal limits. Liver: Unremarkable. Gallbladder: Multiple stones. Borderline gallbladder wall thickening at 3 mm. The technologist reported a positive sonographic Lopez sign. Therefore, this raises the possibility of an early acute cholecystitis. CBD: 3 mm. Right kidney: No hydronephrosis. IMPRESSION: 1. Multiple gallstones with borderline gallbladder wall thickening. The technologist reported positive sonographic Lopez sign. Therefore, this raises the possibility of an early acute cholecystitis. Surgical consultation and/or nuclear medicine HIDA scan can be used for further evaluation. 2. Normal caliber common bile duct.
[2024-02-03] MEDS ORDERED: HYDROmorphone INJ 0.5 MG/0.5 ML SYR IV PRN (16:50)
[2024-02-03] MEDS ORDERED: Nursing to Pharmacy Communication SCH (17:00)
[2024-02-03] MEDS: INSULIN ASPART PER UNIT CHARGE SC SCH ×2 (17:45→18:02)
[2024-02-03] MEDS: ONDANSETRON INJ 2 MG/ML 2 ML VIAL IV PRN (18:32)
[2024-02-03] MEDS: HYDROmorphone INJ 1 MG/ML SYRINGE IV PRN (19:59)
[2024-02-03] MEDS: ATORVASTATIN 20 MG TAB PO SCH (21:14)
[2024-02-03] MEDS: POLYETHYLENE (MIRALAX) 17 GM PACK PO SCH (21:14)
[2024-02-03] MEDS: metroNIDAZOLE 500 MG/100 ML BAG IV SCH (23:00)
[2024-02-04] MEDS: LEVOTHYROXINE SODIUM 50 MCG TABLET PO SCH (04:50)
--- OUTSIDE RECORDS SUMMARY | 2024-02-04 04:51 | External Medical Summary | Summary of Care ---
Author Name Unknown Organization [facility] Address [address] [place] [address] Phone [phone] Care Team Providers Care Estate Manager Name Role Phone Anjum Ovalle MD Primary Care Pr ovider Reason for Visit * Auth/Cert Specialty Diagnoses / Procedures Referred By Contac t Referred To Contact Diagnoses Family history of colonic polyps Family history of colonic polyps [Z83.719] Procedures COLONOSCOPY, DIAGNOSTIC (RECTUM) COLONOSCOPY FLEXIBLE PROXIMAL DIAGNOSTIC Referral ID Status Reason Start Date Expiration Date Visits Re quested Visits Authorized [id number] Encounter Details Date Type Department Care Team (Latest Contact Info) Description 11/28/2023 9:52 AM EST - 11/28/2023 11:38 AM [facility] Encounter ENDO [facility], Endoscopy [address] [phone] Missy Lobato MD [address] [place] [id number] Colonoscopy Discharge Disposition: Home - Self Care Allergies No known active allergiesdocumented as of this encounter (statuses as of 11/28/2023) Medications Medication Sig Dispensed Refills Start Date End Date Status metFORMIN ER (GLUCOPHAGE XR) 500 MG TB24 Take 1 Tablet by mouth daily with dinner. 0 Active levothyroxine (SYNTHROID) 50 MCG Tablet Take 1 Tablet by mouth daily first thing in the morning. (at least 30 min prior to breakfast or other meds) 0 Active celecoxib (CELEBREX) 200 MG Capsule Take 200 mg by mouth 2 times a day. 0 Active Fesoterodine Fumarate ER (TOVIAZ) 4 MG TB24 Take 4 mg by mouth daily. 0 Active lisinopril (PRINIVIL) 5 MG Tablet Take 1 Tablet by mouth in the morning. 0 Active Cholecalciferol (VITAMIN D) 2000 units Tablet daily. 0 Active atorvaSTATin (LIPITOR) 80 MG Tablet 0 11/01/2019 Active ASPIRIN EC LOW STRENGTH 81 MG TBEC 0 11/01/2019 Activ e MegaRed [place]-3 Krill Oil 500 MG Oral Capsule Take by mouth. 0 Active buPROPion HCl ER (SR) 150 MG Oral Tablet Extended Release 12 Hour (Wellbutrin SR) Take 2 Tablets by mouth in the morning and 2 Tablets before bedtime. 0 Active Naltrexone HCl 50 MG Oral Tablet (Revia) Take 0.5 Tablets by mouth in the morning. 0 Active documented as of this encounter (statuses as of 11/28/2023) Active Problems Problem Noted Date Diagnosed Date ERASMO (obstructive sleep apnea) 11/27/2020 LGSIL on Pap smear of cervix 10/27/2020 ADVANCE DIRECTIVE INFORMATION 11/15/2005 Overview: No, Advance Directive brochure given to patient. s/p melanoma .52mm left post shoulder with regre ssion 01/05/2003 nevus sebaceous left vertex 01/05/2003 Anemia Major depressive disorder Overview: ICD-10 update of inactive term Malaise and fatigue Disease of nail documented as of this encounter (statuses as of 11/28/2023) Resolved Problems Problem Noted Date Diagnosed Date Resolved Date MALIG MELANOMA left shoulder 05/07 thin 08/03/2002 03/25/2005 documented as of this encounter (statuses as of 11/28/2023) Social History Tobacco Use Types Packs/Day Years Used Date Smoking Tobacco: Never Smokeless Tobacco: Never Alcohol Use Standard Drinks/Week Comments Yes 0 (1 standard drink = 0.6 oz pur e alcohol) occasionally Sex and Gender Information Value Date Recorded Sex Assigned at Not on file Gender Identity Not on file Sexual Orientation Not on file Job Start Date Occupation Industry Not on file Not on file Not on file documented as of this encounter Last Filed Vital Signs Vital Sign Reading Time Taken Comments Blood Pressure 131/74 11/28/2023 11:31 AM EST Pulse 76 11/28/2023 11:31 AM EST Temperature 36.2 C (97.2 F) 11/28/2023 11:[address] Respiratory Rate 19 11/28/2023 11:31 AM EST Oxygen Saturation 97% 11/28/2023 11:31 AM EST Inhaled Oxygen Concentration - - Weight 81.6 kg (180 lb) 11/19/2023 9:54 AM EST Height 157.5 cm (5' 2") 11/19/2023 9:54 AM EST Body Mass Index 32.92 11/19/2023 9:54 AM EST documented in this encounter H&P Notes * Missy Lobato MD - 11/28/2023 10:26 AM EST Endoscopy Pre-Procedure Assessment Name: Nadege Thomson Date: 11/28/2023 Time: 10:26 AM Procedure(s): Colonoscopy; with Indication(s) of family history Endoscopy Pre-Procedure Assessment: Prior to the procedure, the patient is identified. The patient's history, medications and allergieshave been reviewed. The patient is competent. The risks and benefits of the proposed procedure and the planned sedation have been discussed with the patient. All questions have been answered and informed consent for the procedure has been obtained. Prior to Admission medications Medication Sig Last Dose Discont. buPROPion HCl ER (SR) 150 MG Oral Tablet Extended Release 12 Hour (Wellbutrin SR) Take 2 Tablets bymouth in the morning and 2 Tablets before bedtime. 11/27/2023 MegaRed [place]-3 Krill Oil 500 MG Oral Capsule Take by mouth. 11/27/2023 ASPIRIN EC LOW STRENGTH 81 MG TBEC 11/27/2023 atorvaSTATin (LIPITOR) 80 MG Tablet 11/27/2023 Cholecalciferol (VITAMIN D) 2000 units Tablet daily. 11/27/2023 levothyroxine (SYNTHROID) 50 MCG Tablet Take 1 Tablet by mouth daily first thing in the morning. (at least 30 min prior to breakfast or other meds) 11/28/2023 lisinopril (PRINIVIL) 5 MG Tablet Take 1 Tablet by mouth in the morning. 11/27/2023 Naltrexone HCl 50 MG Oral Tablet (Revia) Take 0.5 Tablets by mouth in the morning. Patient not taking: Reported on 11/28/2023 Not Taking celecoxib (CELEBREX) 200 MG Capsule Take 200 mg by mouth 2 times a day. Patient not taking: Reported on 10/18/2021 Fesoterodine Fumarate ER (TOVIAZ) 4 MG TB24 Take 4 mg by mouth daily. Patient not taking: Reported on 11/28/2023 Not Taking metFORMIN ER (GLUCOPHAGE XR) 500 MG TB24 Take 1 Tablet by mouth daily with dinner. Patient not taking: Reported on 11/28/2023 Not Taking Review of patient's allergies indicates: No Known Allergies BP 149/78 | Pulse 86 | Temp 36.3 C (97.3 F) | Resp 20 | Ht 1.575 m (5' 2") | Wt 81.6 kg (180 lb) | LMP 10/25/2005 | SpO2 99% | BMI 32.92 kg/m | BSA 1.89 m Physical Exam: Mental Status Examination: alert and oriented. Respiratory Examination: normal respirations, no audible wheezing CV Examination: regular rate ASA Grade: II - A patient with mild systemic disease. Abdomen: soft This patient has undergone a preprocedural evaluation. A determination has been made to proceed with the planned procedure under [facility] procedural guidelines and the [facility] Non-Emergent, Elective Medical Services and Treatment Recommendations (published on 01-11-20). The community and hospital prevalence of COVID-19 has been discussed as well as this patient's specific risks associated with SARS-CoV-19 infection. Based upon the clinical acuity and patient-specific care considerations, this procedure is deemed a Tier III - Procedures at little or no risk for clinical deterioration (example - cosmetic). After reviewing the risks and benefits, the patient is deemed in satisfactory condition to undergo the procedure. The anesthesia plan is to use general anesthesia. Missy Lobato MD 11/28/2023 documented in this encounter Procedure Notes * Anjum Ovalle MD - 11/28/2023 10:24 AM ESTAssociated Order(s): COLONOSCOPY [facility] Patient Name: Nadege Thomson Procedure Date: 11/28/2023 10:24 AM Date of : 1960 Admit Type: Outpatient Note Status: Finalized Date of : 1960 Admit Type: Outpatient Age: 63 Room: [facility] 2 Gender: Female Note Status: Finalized Procedure: Colonoscopy Indications: High risk screening: family history of colon cancer (niece with metastatic rectal cancer) and mom with polyps Providers: Missy Lobato MD Patient Profile: Last Colonoscopy: September 2018. Referring MD: Anjum Su MD Medicines: See the Anesthesia note for documentation of the administered medications Complications: No immediate complications. Procedure: Pre-Anesthesia Assessment: - Patient identification and proposed procedure were verified prior to the procedure by the physician, the nurse and the anesthesiologist. The procedure was verified in the pre-procedure area. - Prior to the procedure, a History and Physical was performed, and patient medications, allergies and sensitivities were reviewed. The patient's tolerance of previous anesthesia was reviewed. - The risks and benefits of the procedure and the sedation options and risks were discussed with the patient. All questions were answered and informed consent was obtained. - The medication list for this patient has been reviewed prior to the procedure and has been determined that the patient may proceed with the planned study. Any medication changes made as a result of the findings of this procedure have been discussed with the patient and/or exhibit display representative at the time of discharge from the department. - After I obtained informed consent, the scope was passed under direct vision. All instruments were visually inspected immediately before and after removal from the patient to ensure they are fully intact. Throughout the procedure, the patient's blood pressure, pulse, and oxygen saturations were monitored continuously. The PCF-[id number] colonoscope ([id number]) was introduced through the anus and advanced to the terminal ileum. The colonoscopy was performed without difficulty. The patient tolerated the procedure well. The quality of the bowel preparation was adequate to identify polyps 6 mm and larger in size. Findings & Specimens: The examined terminal ileum appeared normal. The examined colon appeared normal. Internal hemorrhoids were found during retroflexion. The exam was otherwise without abnormality on direct and retroflexion views. Impression: - The examined portion of the terminal ileum appeared normal. - The examined colon appeared normal. - Internal hemorrhoids. - The examination was otherwise normal on direct and retroflexion views. Recommendation: - Repeat colonoscopy in 5 years for screening purposes. Missy Lobato MD 11/28/2023 10:54:50 AM This report has been signed electronically. Estimated Blood Loss: Estimated blood loss was minimal. documented in this encounter Nursing Notes * Venus Aquino RN - 11/28/2023 11:38 AM EST Patient is discharged under the care of : friend Report called to N/A Means of transportation: ambulatory Discharge instructions reviewed by: Nurse Special discharge instructions given for: N/A Bronchoscopy: N/A Patient verbalized understanding of discharge instructions: YES Escorted out with endo staff to designated taxi cab driver. * Venus Aquino RN - 11/28/2023 11:20 AM EST Reviewed discharge instructions and procedure results with the patient. Med list and discharge instructions given to patient. Verbalized understanding and denies any other questions or concerns. Sat up at side of stretcher. * Venus Aquino RN - 11/28/2023 11:14 AM EST HOB elevated to 45 degrees. PO fluids given and tolerated. Dr. Lobato in to go over procedure results with the patient. * Venus Aquino RN - 11/28/2023 11:01 AM EST Pt received in recovery S/P colonoscopy. Pt awake and resting on left side. Pt denies pain. Abd soft Report received from rae Marie RN. VSS. Airway patent. * Rae Marie RN - 11/28/2023 10:52 AM EST Colonoscopy completed. Pt david procedure well. Sedated by NET PROGRAMMER. See anesthesia record for VS and medications given. Abd soft. Airway patent. Pt to recovery on L side with HOB elevated. Report to recovery room nurse. Bedside cleaning done. * Milana Velasquez RN - 11/28/2023 10:17 AM EST Nursing assessment completed. Declines needs at this time. Anesthesia aware patient ready to be seen. documented in this encounter Plan of Treatment Scheduled Procedures Name Priority Associated Diagnoses Date/Ti me COLONOSCOPY FLEXIBLE PROXIMAL DIAGNOSTIC Recall Family history of colonic polyps 11/28/2023 10:36 AM EST Health Maintenance Due Date Last Done Comments Depression Screening 1970 HIV Screening 1973 Hepatitis C Screening 1976 DTaP,Tdap,and Td Vaccines (1 - Tdap) 1977 TSH 10/29/2006 10/29/2005, 03/06, 09/14/2001, Additional history exists Diabetes Screening 10/29/2008 10/29/2005, 0 10/14/2002, 03/18/2002, Additional history exists Lipid Panel 10/29/2010 10/29/2005, 10/14/2002 DXA Scan 2023 Pneumococcal Vaccine: 65+ Years (2 of 2 - PCV) 2023 12/03/2019 COVID-19 Vaccine (1 - 2022- season) 2023 Influenza Vaccine (FLU shot) (#1) 2023 07/15/2017, 06/15/2016, 08/08/2015, Additional history exists Mammogram 02/15/2024 02/14/2023, 01/05, 10/24/2020, Additional history exists COLONOSCOPY-EVERY 5 YRS AGES 18-100 11/28/2028 11/28/2023, 09/09/2018, 09/09/2018 Hepatitis B Completed 12/24/1996, 05/1996, 07/16/1996 MENINGOCOCCAL (MENACTRA/MENVEO) Aged Out 12/09/2007 No longer eligible based on patient's age to complete this topic Zoster Vaccines Completed 09/04/2020, 05/07, 10/13/2018, Additional history exists Cervical Cancer Screening Discontinued Pap Smear Discontinued 10/18/2021, 03/2006, 11/11/2005, Additional history exists GARDASIL-HPV IMMUNIZATION SERIES Aged Out No longer eligible based on patient's age to complete this topic HPV/Co-Test Discontinued documented as of this encounter Medical Devices Not on filedocumented as of this encounter Procedures Procedure Name Priority Date/Time Associated Diagnosis Comments COLONOSCOPY 11/28/2023 10:24 AM EST documented in this encounter Results * COLONOSCOPY (11/28/2023 10:24 AM EST) 11/28/2023 10:2 4 AM EST Narrative Procedure Note Anjum Ovalle MD - 11/28/2023 10:24 AM EST [facility] Patient Name: Nadege Thomson Procedure Date: 11/28/2023 10:24 AM Date of : 1960 Admit Type: Outpatient Note Status:Finalized Date of : 1960 Admit Type: Outpatient Age: 63 Room: [facility] 2 Gender: Female Note Status: Finalized Procedure: Colonoscopy Indications: High risk screening: family history of colon cancer(niece with metastatic rectal cancer) and mom with polyps Providers: Missy Lobato MD Patient Profile: Last Colonoscopy: September 2018. Referring MD: Anjum Su MD Medicines: See the Anesthesia note for documentation of theadministered medications Complications: No immediate complications. Procedure: Pre-Anesthesia Assessment: - Patient identification and proposed procedurewere verified prior to the procedure by the physician, the nurse and theanesthesiologist. The procedure was verified in the pre-procedure area. - Prior to the procedure, a History and Physicalwas performed, and patient medications, allergies and sensitivities werereviewed. The patient's tolerance of previous anesthesia was reviewed. - The risks and benefits of the procedure and thesedation options and risks were discussed with the patient. All questions wereanswered and informed consent was obtained. - The medication list for this patient has beenreviewed prior to the procedure and has been determined that the patient may proceed with the plannedstudy. Any medication changes made as a result of the findings of this procedure have beendiscussed with the patient and/or exhibit display representative [facility] - After I obtained informed consent, the scope waspassed under direct vision. All instruments were visually inspected immediatelybefore and after removal from the patient to ensure they are fully intact. Throughout the procedure, the patient's bloodpressure, pulse, and oxygen saturations were monitored continuously. The PCF-[id number] ([id number]) was introduced through the anus and advanced to the terminalileum. The colonoscopy was performed without difficulty. The patient tolerated theprocedure well. The quality of the bowel preparation was adequate to identify polyps 6mm and larger in size. Findings & Specimens: The examined terminal ileum appeared normal. The examined colon appeared normal. Internal hemorrhoids were found during retroflexion. The exam was otherwise without abnormality on direct and retroflexionviews. Impression: - The examined portion of the terminal ileumappeared normal. - The examined colon appeared normal. - Internal hemorrhoids. - The examination was otherwise normal on directand retroflexion views. Recommendation: - Repeat colonoscopy in 5 years for screeningpurposes. Missy Lobato MD 11/28/2023 10:54:50 AM This report has been signed electronically. Estimated Blood Loss: Estimated blood loss was minimal. Anjum CHISHOLM documented in this encounter Administered Medications Inactive Administered Medications - up to 3 most recent administrations Medication Order MAR Action Action Date Dose Rate Site isolyte-S pH 7.4 infusion Intravenous, at 75 mL/hr, for Outpatient patient Plasma-LYTE 148, isolyte-S, and isolyte-S pH 7.4 are considered equivalent - including for MAR barcode scanning., CONTINUOUS, Starting on Fri11/28/23 at 1030, Until Fri11/28/23 at 1539, Pre-Op Restarted 11/28/2023 10:39 AM EST Continue from Pre-Op 11/28/2023 10:36 AM EST 75 mL/hr New Bag 11/28/2023 10:18 AM EST 75 mL/hr 75 mL/hr documented in this encounter Active and Recently Administered Medications Times are shown in EST. Continuous Medication Order 11/26/2023 11/27/2023 11/28/2023 isolyte-S pH 7.4 infusion Intravenous, at 75 mL/hr, for Outpatient patient Plasma-LYTE 148, isolyte-S, and isolyte-S pH 7.4 are considered equivalent - including for MAR barcode scanning., CONTINUOUS, Starting on Fri11/28/23 at 1030, Until Fri11/28/23 at 1539, Pre-Op 1018 (New Bag - Prov ider: Milana Velasquez RN)1036 (Continue from Pre-Op - Provider: Aston Riojas CRNA)1038 (Paused - Provider: Aston Riojas CRNA - Comment: Switch to gravity)1039 (Restarted - Provider: Aston Riojas CRNA)1054 (Stopped - Provider: Aston Riojas CRNA) documented in this encounter Care Teams Estate Manager Relationship Specialty Start Date End Date Anjum Ovalle MD [address] [place] [address] PCP - General Family Medicine 11/29/21 documented as of this encounter
--- OUTSIDE RECORDS SUMMARY | 2024-02-04 04:51 | External Medical Summary | Continuity of Care Document ---
Author Name Unknown Organization [facility] [address] [facility] [address] [phone] Care Team Providers Care Manager Company Name Role Phone AbbycihomaSheebabradAnjum Primary Care Physic sally [phone] [id number] Date(s): 10/15/23 - 10/15/23 [facility] [address] [facility] [address] [phone] Encounter Diagnosis Seborrheic keratoses(Discharge Diagnosis) - 10/15/23 Nevus sebaceus(Discharge Diagnosis) - 10/15/23 Asteatosis cutis(Discharge Diagnosis) - 10/15/23 Discharge Disposition: Home or Self Care Attending Physician: MD Aguero Thomas A Allergies, Adverse Reactions, Alerts No Known Allergies Assessment and Plan Extracted from: Title:Clinical Document Author:MD More, Ronald Boss Date:10/15/23 OUTPATIENT NOTE Name: JEMIMA MASTERS Patient Number:[id number] : 1960 Date of Service: 10/15/2023 Thomas Masters returns for reevaluation. 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 At 1 point it had oozed and was biopsied, but no pathologic diagnosis was made. Patient will continue to monitor this for any changes. Patient has a prior history of a skin cancer excised from the left shoulder approximately 20 years ago. She is unsure as to the nature of the lesion, but there is no sign of recurrence and the scar is well-healed. Review of systems medications allergies as noted on the chart. The patient is in stable health. Examination reveals pleasant well-nourished white female with type I skin who is alert and oriented x 3 with normal mood and affect. Examination of the scalp, head, neck, back, chest, arms, hands, fingers, abdominal area, legs, feet, and toes reveals seborrheic keratosis present on the right abdominal area which sometimes irritates, but then peels it requires no further treatment, mild scaling in the scalp for which the patient was advised to use a 3% salicylic acid shampoo that we could prescribe a topical steroid solution for symptomatic relief if desired. Examination is otherwise unremarkable. The patient will return in 1 year for reevaluation. Medications Aspir 81 Start: 02/28/21 10:16:00 EDT, 81 mg =, PO, Daily Start Date: 02/28/21 Status: Ordered atorvastatin 20 mg oral tablet Start: 03/06/21 10:35:00 EDT, 1 tab, PO, Daily Start Date: 03/06/21 Status: Ordered estradiol 10 mcg vaginal tablet Start: 10/15/23 11:37:00 EST Start Date: 10/15/23 Status: Ordered levothyroxine Start: 02/28/21 10:16:00 EDT, 50 mcg =, PO, Daily Start Date: 02/28/21 Status: Ordered lisinopril Start: 02/28/21 10:16:00 EDT, 10 mg =, PO, Daily Start Date: 02/28/21 Status: Ordered [place]-3 Fish Oil Start: 09/05/22 12:58:00 EST Start Date: 09/05/22 Status: Ordered Vitamin D3 Start: 03/06/21 10:37:00 EDT, PO, Daily Start Date: 03/06/21 Status: Ordered Mental Status 10/15/23 Barriers to Learning one year None evide nt Mandatory Health Literacy Documentation Yes Health Literacy Communication Barriers N ever Primary Language Lithuanian Problem List Condition Confirmation Course Effective Dates Status H ealth Status Informant Carpal tunnel syndrome 1 Confirmed Active Diabetes Confirmed Active S/P carpal tunnel release Confirmed Active Hypothyroidism Confirmed Active 1right Diagnosis Diagnosis Type Effective Dates Health Status Clinical Service Informant Seborrheic keratoses Discharge Diagnosis 10/15/23 Asteatosis cutis Discharge Diagnosis 10/15/23 Nevus sebaceus Discharge Diagnosis 10/15/23 Procedures Procedure Date Related Diagnosis Body Site Status Carpal tunnel release 2020 Com pleted Social History Social History Type Response Smoking Status Never smoked cigaret jeniffer Sex Female Outpatient Note * MD More, Joes Boss: PERFORM Event Display: .Outpt Note Authored Date: [id number] OUTPATIENT NOTE Name: JEMIMA MASTERS Patient Number:[id number] : 1960 Date of Service: 10/15/2023 _ Jemima Masters returns for reevaluation. 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 At 1 point it had oozed and was biopsied, but no pathologic diagnosis was made. Patient will continue to monitor this for any changes. Patient has a prior history of a skin cancer excised from the left shoulder approximately 20 years ago. She is unsure as to the nature of the lesion, but there is no sign of recurrence and the scar is well-healed. Review of systems medications allergies as noted on the chart. The patient is in stable health. Examination reveals pleasant well-nourished white female with type I skin who is alert and orientedx 3 with normal mood and affect. Examination of the scalp, head, neck, back, chest, arms, hands, fingers, abdominal area, legs, feet, and toes reveals seborrheic keratosis present on the right abdominal area which sometimes irritates, but then peels it requires no further treatment, mild scaling inthe scalp for which the patient was advised to use a 3% salicylic acid shampoo that we could prescribe a topical steroid solution for symptomatic relief if desired. Examination is otherwise unremarkable. The patient will return in 1 year for reevaluation. Electronic Signature on File Electronically Reviewed/Signed by: Jose Aguero MD Author Signature Dt/Tm:10/15/2023 12:00 PM Department of Dermatology [facility] Patient Care team information Care Team Personnel Name: MD Josi, Anjum [place] Position: Referring Member Role: Primary Care Provider Address: Address: [address]
--- OUTSIDE RECORDS SUMMARY | 2024-02-04 04:51 | External Medical Summary | Summary of Care ---
Author Name Unknown Organization [facility] Address [address] [place] [address] Phone [phone] Care Team Providers Care Filleter Name Role Phone Anjum Ovalle MD Primary Care Pr ovider Encounter Details Date Type Department Care Team (Late st Contact Info) Description 12/22/2023 Orders Only [facility], [address] *DO NOT REMOVE THIS DEPARTMENT* LCUIA MONROY [id number] Requisition, External Radiology [address] [place] [address] Encounter for screening mammogram for malignant neoplasm of breast* Allergies No known active allergiesdocumented as of this encounter (statuses as of 12/22/2023) Medications Medication Sig Dispensed Refills Start Date [...] MG TBEC 0 11/01/2019 Activ e MegaRed [place]-3 Krill Oil 500 MG Oral Capsule Take [...] as of this encounter (statuses as of 12/22/2023) Active Problems Problem Noted Date Diagnosed Date [...] as of this encounter (statuses as of 12/22/2023) Resolved Problems Problem Noted Date Diagnosed Date Resolved Date MALIG MELANOMA left shoulder 05/07 thin 08/03/2002 03/25/2005 documented as of this encounter (statuses as of 12/22/2023) Social History Tobacco Use Types Packs/Day Years [...] on file documented as of this encounter Plan of Treatment Scheduled Orders Name Type Priority Associated Diagnoses Orde r Schedule MAMMOGRAM SCREENING VEGA BILATERAL Medical Imaging Routine Encounter for screening mammogram for malignant neoplasm of breast Expected: 12/22/2023 (Approximate), Expires: 01/21/2025 Health Maintenance Due Date Last Done Comments [...] PCV) 2023 12/03/2019 COVID-19 Vaccine (1 - season) 2023 Influenza Vaccine (FLU shot) (#1) 2023 07/15/2017, 06/15/2016, 08/08/2015, Additional history exists Mammogram 02/15/2024 02/14/2023, 01/05, 10/24/2020, Additional history exists COLONOSCOPY-EVERY 5 YRS AGES 18-100 11/28/2028 11/28/2023, 11/28/2023, 09/09/2018, Additional history exists Hepatitis B Completed 12/24/1996, 05/1996, 07/16/1996 MENINGOCOCCAL [...] Not on filedocumented as of this encounter Visit Diagnoses Diagnosis Encounter for screening mammogram for malignant neoplasm of breast- Primary Other screening mammogram documented in this encounter Care Teams Filleter Relationship Specialty Start Date End Date Anjum Ovalle MD [address] [place] [address] PCP - General Family Medicine 11/29/21 documented as of this encounter
[2024-02-04 08:03] LABS: Hematocrit (blood only) 36.2 % (37.0-47.0); Hemoglobin 11.9 g/dl (12.0-16.0); Mean Corpuscular Hgb Conc 32.9 g/dL (32.0-36.0); Mean Corpuscular Volume 88.1 fL (80.0-100.0); Mean Platelet Volume 9.7 fL (9.4-12.4); Platelet Count 351 K/uL (130-400); RDW Coefficient of Variation 13.8 % (11.5-14.5); RDW Standard Deviation 44.8 fL (36.4-46.3); Red Blood Count 4.11 M/uL (4.20-5.40)
[2024-02-04 08:13] LABS: Albumin Globulin Ratio 1.4 (0.9-2); Albumin Level 3.7 gm/dl (3.4-5.0); BUN Creatinine Ratio 16.4 (10-20); Bilirubin,Total 0.5 mg/dl (0.2-1.0); Calcium 8.2 mg/dl (8.6-10.3); Creatinine Clr Calc Pharmacy 92.3 ml/min; Est GFR (African American) 110.3 ml/min; Est GFR (Non-African American) 95.1 ml/min; Globulin 2.6 gm/dl (2.5-4.0); Potassium 4.3 mmol/L (3.5-5.1); Total Protein 6.3 gm/dl (6.0-8.3)
--- NOTE | 2024-02-04 08:26 | History & Physical Bridge Note ---
Date of Service February 04, 2024 History & Physical Bridge Note I have examined the patient, reviewed the History & Physical and in the interval since the performance of the History & Physical I have noted the following changes of clinical significance: no changes noted
[2024-02-04] MEDS: lisinopril 10 MG TAB PO SCH (08:40)
[2024-02-04 08:45] LABS: Estimated Average Glucose 131 mg/dl; Hemoglobin A1C 6.2 % (4.5-5.6)
--- NOTE | 2024-02-04 10:22 | Anesthesiology Consultation ---
Date of Service February 04, 2024 Assessment & Plan (1) Encounter for pre-operative examination: Chart Review Chart Review: Acceptable Risk for Surgery and Patient NOT seen in Pre Admission Testing Consults Requested none History Surgery Operation Date: 02/04/24 13:00 Proposed Procedures p Laparoscopic Cholecystectomy - Jv Serrato MD Height/Weight Height: 5 ft 2 in Weight: 83.8 kg Allergies Allergy/AdvReac Type Severity Reaction Status Date / Time No Known Drug Allergies Allergy Verified 03/06/21 13:00 Medications Home Medications Medication Instructions Recorded Confirmed Last Taken aspirin 81 mg tablet 81 mg PO QAM 01/10/20 02/03/24 03/07/21 levothyroxine 50 mcg tablet 50 mcg PO QAM 01/10/20 02/03/24 03/12/21 04:15 lisinopril 10 mg tablet 10 mg PO QAM 01/10/20 02/03/24 03/11/21 atorvastatin 20 mg tablet 20 mg PO HS 03/06/21 02/03/24 03/11/21 cholecalciferol (vitamin D3) 25 25 mcg PO QAM 03/06/21 02/03/24 03/07/21 mcg (1,000 unit) tablet (Vitamin D3) estradiol 4 mcg vaginal insert 4 mcg vaginal DAILY 02/03/24 02/03/24 Unknown Active Medications Generic Name Dose Route Start Last Admin Trade Name Freq PRN Reason Stop Dose Admin Atorvastatin Calcium 20 mg 02/03/24 21:00 02/03/24 21:14 Atorvastatin 20 Mg Tab PO 03/04/24 20:59 20 mg HS XI Administration Hydromorphone HCl 1 mg 02/03/24 16:50 02/04/24 08:44 Hydromorphone Inj 1 Mg/Ml Syringe IV 02/17/24 16:49 1 mg Q3H PRN Administration Pain 6-10 Ceftriaxone Sodium 2,000 mg in 50 mls @ 100 mls/hr 02/03/24 15:00 02/03/24 15:41 Rocephin IV 02/13/24 14:59 Infused Q24H XI Infusion Acetaminophen 1,000 mg in 100 mls @ 400 mls/hr 02/03/24 14:09 02/04/24 07:44 Ofirmev IV 02/06/24 14:08 Infused Q8H PRN Infusion Pain Metronidazole 500 mg in 100 mls @ 100 mls/hr 02/04/24 00:00 02/04/24 09:50 Flagyl IV 02/14/24 00:00 Infused Q8H [facility] Infusion Protocol Insulin Aspart 0 units 02/03/24 18:00 02/04/24 12:20 Insulin Aspart Per Unit Charge SC 03/04/24 17:59 Not Given Q6 XI Levothyroxine Sodium 50 mcg 02/04/24 06:30 02/04/24 04:50 Levothyroxine Sodium 50 Mcg Tablet PO 03/05/24 06:29 50 mcg DAILYBB XI Administration Lisinopril 10 mg 02/04/24 09:00 02/04/24 08:40 Lisinopril 10 Mg Tab PO 03/05/24 08:59 Not Given QAM XI Ondansetron HCl 4 mg 02/03/24 16:50 02/03/24 18:32 Ondansetron Inj 2 Mg/Ml 2 Ml Vial IV 03/04/24 16:49 4 mg Q6H PRN Administration Nausea Polyethylene Glycol 17 gm 02/03/24 21:00 02/04/24 08:37 Polyethylene (Miralax) 17 Gm Pack PO 03/04/24 20:59 Not Given DAILY XI Past Medical History Medical History (Updated 02/04/24 @ 10:22 by Dorian Fallon MD) Encounter for pre-operative examination History of melanoma History of endometrial biopsy BENIGN Osteoarthritis Overactive bladder Diabetes mellitus, type 2 Hypothyroidism History of skin cancer Low iron Hypertension Hyperlipidemia Sleep apnea CPAP Exercise / Class Metabolic Activity II 4-5 Yardwork/Stairs/Walk up hill Past Family History Family History Mother Alzheimer disease Family history of diabetes mellitus Father Family history of diabetes mellitus Other No family history of adverse response to anesthesia Past Surgical History Surgical History History of colonoscopy History of tooth extraction History of tonsillectomy and adenoidectomy History of nasal cauterization History of nasal surgery History of bladder surgery BLADDER SLING Social History Smoking Status: Never smoker Do You Dip or Chew Tobacco: No Hx Alcohol Use: No alcohol intake frequency: holidays/special occasions only Hx Substance Use: No substance use type: does not use Physical Exam Vital Signs Last Vital Signs Temp 37.3 C 02/04/24 08:36 Pulse 90 02/04/24 08:36 Resp 18 02/04/24 08:36 BP 118/70 02/04/24 08:36 Pulse Ox 95 02/04/24 08:36 O2 Del Method Room Air 02/04/24 08:36 FiO2 21 02/04/24 03:58 Testing Laboratory Results 02/04/24 07:11 02/04/24 07:11 Hemoglobin A1c 6.2 % (4.5-5.6) H 02/04/24 07:11 Urine Color Dark Yellow 02/03/24 10:51 Urine Appearance Turbid (Clear) A 02/03/24 10:51 Urine pH 5.5 (4.5-7.5) 02/03/24 10:51 Ur Specific [place] 1.024 (1.000-1.030) 02/03/24 10:51 Urine Protein Negative (Negative) 02/03/24 10:51 Urine Glucose (UA) Negative (Negative) 02/03/24 10:51 Urine Ketones Trace (Negative) H 02/03/24 10:51 Urine Nitrite Negative (Negative) 02/03/24 10:51 Ur Leukocyte Esterase Negative (Negative) 02/03/24 10:51 Urine WBC (Auto) 0-5 /hpf (0-5) 02/03/24 10:51 Urine RBC (Auto) 3-5 /hpf (0-2) H 02/03/24 10:51 U Hyaline Cast (Auto) 0-2 /lpf (0-2) 02/03/24 10:51 U Epithel Cells (Auto) 3-5 /hpf (0-2) H 02/03/24 10:51 Urine Bacteria (Auto) None Seen (None Seen) 02/03/24 10:51 02/04/24 02/04/24 12:05 06:12 POC Glucose 122 H 133 H Electrocardiogram Date: 01/27/24 DICTATED BY: Bryan Bhakta MD Test Reason : Blood Pressure : / mmHG Vent. Rate : 077 BPM Atrial Rate : 077 BPM P-R Int : 172 ms QRS Dur : 074 ms QT Int : 372 ms P-R-T Axes : 047 014 059 degrees QTc Int : 420 ms Normal sinus rhythm Diffuse Nonspecific ST abnormality Abnormal ECG No previous ECGs available Confirmed by Bryan Bhakta ([id number]) on 02/03/2024 4:11:48 PM Chest X-Ray Date: 02/03/24 SINGLE VIEW CHEST CLINICAL HISTORY: Upper abdominal pain. Atypical chest pain. FINDINGS: An AP, portable, upright chest radiograph is obtained. No prior studies are available for comparison at the time of dictation. The cardiomediastinal silhouette is unremarkable. The lungs and pleural spaces are clear. No pneumothorax is seen. The bony thorax is grossly intact. IMPRESSION: No active disease in the chest.
[2024-02-04] MEDS ORDERED: LIDOCAINE 2% 2 ML VIAL/AMP(20MG/ML) INFIL ONE (11:43)
[2024-02-04] MEDS ORDERED: ROCURONIUM BROMIDE 10 MG/ML 5 ML VIAL IV ONE (11:43)
[2024-02-04] MEDS ORDERED: ONDANSETRON INJ 2 MG/ML 2 ML VIAL ONE (11:43)
[2024-02-04] MEDS ORDERED: SUGAMMADEX SODIUM 200 MG/2 ML VIAL IV ONE (11:43)
[2024-02-04] MEDS ORDERED: fentaNYL citrate PF 100 MCG/2 ML VIAL ONE (11:43)
[2024-02-04] MEDS ORDERED: PROPOFOL IV EMULSION 10 MG/ML 20 ML VIAL IV ONE (11:43)
[2024-02-04] MEDS ORDERED: MIDAZOLAM HCL 1 MG/ML 2ML VIAL ONE (11:43)
[2024-02-04] MEDS ORDERED: DEXAMETHASONE SOD INJ 4 MG/ML VIAL ONE (11:43)
[2024-02-04] MEDS ORDERED: PHENYLEPHRINE 100MCG/ML 10ML SYR IV ONE (11:43)
[2024-02-04] MEDS ORDERED: ONDANSETRON INJ 2 MG/ML 2 ML VIAL IV PRN (12:48)
[2024-02-04] MEDS ORDERED: ATROPINE SULFATE 0.1 MG/ML 10ML SYR IV PRN (12:48)
[2024-02-04] MEDS ORDERED: fentaNYL citrate PF 100 MCG/2 ML VIAL IV PRN (12:48)
[2024-02-04] MEDS ORDERED: HYDROmorphone INJ 1 MG/ML SYRINGE IV PRN (12:48)
[2024-02-04] MEDS ORDERED: PROMETHAZINE HCL 6.25 MG in SODIUM CHLORIDE 0.9% 50 ML IV PRN (12:48)
[2024-02-04] MEDS ORDERED: ePHEDrine sulfate 50 MG/ML AMP IV PRN (12:48)
--- NOTE | 2024-02-04 13:02 | Hospitalist Progress Note ---
Date of Service February 04, 2024 Assessment & Plan (1) Acute cholecystitis: Plan: Patient is a 63 yr [facility] of hypothy[facility], HTN, diet controlled DM II, ERASMO on CPAP and other medical problems listed below who presents with abdominal pain started around 0330am. Acute cholecystitis Hydrops of the gallbladder Cholelithiasis --S/P Laparoscopic Cholecystectomy by on 02/04/2024 --Gall Bladder USD: Multiple gallstones with borderline gallbladder wall thickening. The technologist reported positive sonographic Lopez sign. Therefore, this raises the possibility of an early acute cholecystitis. Surgical consultation and/or nuclear medicine HIDA scan can be used for further evaluation. Normal caliber common bile duct. -- LFTs within normal limits Currently on Rocephin, Flagyl Appreciate surgery input Clear liquid diet today Pain control as needed (2) Diabetes mellitus, type 2: Plan: HbA1c 6.2 Diet controlled, no longer taking metformin Utilize insulin while hospitalized Monitor blood glucose levels (3) Hypothyroidism: Plan: Continue levothyroxine (4) Hypertension: Plan: Continue lisinopril Monitor (5) Hyperlipidemia: Plan: Statin HS DVT Px: SCDs for now Code status: FULL CODE Admission and Anticipated Discharge Date Admission Date: February 03, 2024 Subjective Patient is seen and examined at bedside Abdominal pain is better Plan for cholecystectomy today Denies any nausea, vomiting, chest pain, dyspnea No other complaints Review of Systems Review of Systems: All systems reviewed & are unremarkable except as noted in Subjective Physical Exam Physical Exam: Physical Exam: Vitals signs as noted above General Appearance:Obese, no apparent distress Head: normocephalic, Atraumatic Eyes: normal inspection, EOMI Neck: supple, Trachea midline Respiratory/Chest: Normal breath sounds, CTA, No accessory muscle use Cardiovascular: S1, S2, No murmur Abdomen/GI:Soft, RUQ tender, Bowel sounds present Extremities/Musculoskeletal:normal inspection, no edema Neurologic/Psych:AAOX3, grossly no focal neurological deficits Skin: normal color, warm Results & Data Results & Data Vital Signs (Past 12 Hours) Vital Signs Temp Pulse Pulse Resp BP BP Pulse Ox 02/04/24 08:36 37.3 C 90 18 118/70 95 02/04/24 07:12 37.7 C H 99 H 16 117/73 92 02/04/24 03:58 86 18 96 O2 Del Method FiO2 02/04/24 08:36 Room Air 02/04/24 07:12 Room Air 02/04/24 03:58 21 Laboratory Results Short CBC 02/04/24 Range/Units 07:11 WBC 19.40 H (4.8-10.8) K/ul Hgb 11.9 L (12.0-16.0) g/dl Hct 36.2 L (37.0-47.0) % Plt Count 351 (130-400) K/uL BMP 02/04/24 07:11 Sodium 136 Potassium 4.3 Chloride 107 Carbon Dioxide 24 BUN 10 Creatinine 0.61 Glucose 141 H Calcium 8.2 L Liver Function 02/04/24 Range/Units 07:11 Total Bilirubin 0.5 (0.2-1.0) mg/dl AST 14 (13-39) U/L ALT 13 (7-52) U/L Alkaline Phosphatase 76 (34-104) U/L Albumin 3.7 (3.4-5.0) gm/dl
[2024-02-04] MEDS: LACTATED RINGER'S 1,000 ML IV SCH (13:03)
[2024-02-04] MEDS: SCOPOLAMINE 1 MG/72 HR TDSY PATCH TD ONE ×2 (13:11)
[2024-02-04] MEDS: SURGICEL ABSORB HEMOSTAT 2IN X 14IN TOP ONE ×2 (13:59→14:01)
[2024-02-04] MEDS: BUPIVACAINE/EPINEPHRINE 0.5% MPF 1:200,000 30 ML VIAL ONE (14:15)
--- NOTE | 2024-02-04 14:21 | Operative Report ---
Post Operative Report Pre & Post Diagnosis Operation Date: 02/04/24 13:00 Pre-Op Diagnosis: Cholecystitis Post-Op Diagnosis: Cholecystitis, hydrops of the gallbladder I identified the patient and participated in the time-out.: Yes Procedure Operation Date: 02/04/24 13:00 Actual Procedures p Laparoscopic Cholecystectomy(Not Applicable) - Jv Serrato MD Surgeon Jv Serrato MD Diet Assistant Lilli Obregon PA-C Estimated Blood Loss 25 Findings Consistent with Post-Op Diagnosis Acute cholecystitis with hydrops of the gallbladder. Specimens Gallbladder to pathology Drains None Anesthesia Type General Complications None Indications This is a 63-year-old female admitted to the ED with acute abdominal pain. Ultrasound showed acute cholecystitis. She was placed on IV fluids IV antibiotics. We talked in detail about her findings and recommended laparoscopic cholecystectomy. She understands all the risks and wishes to proceed. Description of Procedure The patient was taken the OR and underwent excellent general endotracheal anesthesia. Their abdomen is prepped and draped normal sterile fashion. A transverse supraumbilical incision was made and dissection was taken down to identify the anterior fascia. Two Vicryl's were placed on either side of the midline and his midline was then incised. The peritoneal cavity was entered bluntly with Valerie clamp. A 12mm Kim trocar was then inserted and secured. Good pneumoperitoneum was achieved to 15 mmHg pressure. Patient is placed in head up and rolled to the left. A 11mm subxiphoid and two 5mm lateral ports were placed in the normal fashion. The gallbladder was identified was acutely inflamed. An aspirator was then used to aspirate the gallbladder. This then facilitated grasping the the fundus of the gallbladder which was retracted superiorly. The neck of the gallbladder was grasped and then retracted laterally. This splayed open the Hepatocystic triangle. Attention was then to taking down the peritoneal attachments to identify the cystic duct and cystic artery. Once these were skeletonized and a medial and lateral window was created between the gallbladder fossa and the duct, thereby ensuring the critical view. Three clips were then placed distally on cystic duct 1 proximally the cystic duct was transected. Two clips were then placed approximately cystic artery one distally, the cystic artery was transected. An electrocautery hook was then used to move the gallbladder off the gallbladder fossa. There was some bile spillage but no stones were spilled. The gallbladder was then placed into an Endobag and brought out through the supraumbilical incision. The pneumoperitoneum was re-established and abdomen was irrigated out until the suction fluid was clear. There were some areas on the gallbladder fossa which were raw and were cauterized and then a Surgicel was used to cover the gallbladder fossa. The ports were then removed and the abdomen decompressed. The fascia of the supraumbilical incision was closed with Vicryls. 0.5% Marcaine with epinephrine local was to create a local field block. Interrupted Vicryl was used to close the skin. Dermabond was used to reinforce the incisions. Sterile dressings were applied. Patient tolerated the procedure without complication and sent to the postop recovery period of observation. She will then be sent to the floor for the rest of his care. Lilli Obregon PA-C was present and participated in the entire procedure. She was integral in skin closure, retraction, and camera manipulation. There was no qualified resident available to assist. I attest to the content of the Intraoperative Record and any orders documented therein. Any exceptions are noted below.
--- NOTE | 2024-02-04 14:42 | Anesthesiology Progress Note ---
Date of Service February 04, 2024 Anesthesia Post Procedure Vital Signs Vital Signs: Temp Pulse Pulse Pulse Resp BP BP 02/04/24 14:35 36.0 C L 91 H 16 116/54 L 02/04/24 12:57 93 H 20 133/70 02/04/24 08:36 37.3 C 90 18 118/70 02/04/24 07:12 37.7 C H 99 H 16 02/04/24 03:58 86 18 02/03/24 22:50 84 20 02/03/24 20:23 37.0 C 80 18 02/03/24 17:24 36.9 C 72 17 133/85 02/03/24 16:36 78 20 168/74 H 02/03/24 15:41 BP Pulse Ox O2 Del Method O2 Flow Rate FiO2 02/04/24 14:35 96 Oxymask 6 02/04/24 12:57 94 Room Air 02/04/24 08:36 95 Room Air 02/04/24 07:12 117/73 92 Room Air 02/04/24 03:58 96 21 02/03/24 22:50 95 21 02/03/24 20:23 126/74 95 Room Air 02/03/24 17:24 95 Room Air 02/03/24 16:36 98 Room Air 02/03/24 15:41 97 Room Air Pain Intensity Abdomen: Pain Intensity: 9 Transfer of Care Handoff Completed per policy Notes Mental Status: alert / awake / arousable Patient Amnestic to Procedure: Yes Nausea / Vomiting: adequately controlled Pain: adequately controlled Airway Patency, RR, SpO2: stable & adequate BP & HR: stable & adequate Hydration State: stable & adequate Anesthetic Complications: no major complications apparent
[2024-02-04] MEDS ORDERED: Nursing to Pharmacy Communication SCH (16:00)
[2024-02-04] MEDS: CHECK SCOPOLAMINE PATCH PLACEMENT SCH (16:31)
[2024-02-04] MEDS: INSULIN ASPART PER UNIT CHARGE SC SCH (17:28)
[2024-02-05 07:33] LABS: Hematocrit (blood only) 32.6 % (37.0-47.0); Hemoglobin 10.9 g/dl (12.0-16.0); Mean Corpuscular Hemoglobin 29.1 pg (25.0-34.0); Mean Corpuscular Hgb Conc 33.4 g/dL (32.0-36.0); Mean Corpuscular Volume 86.9 fL (80.0-100.0); Mean Platelet Volume 9.9 fL (9.4-12.4); Platelet Count 352 K/uL (130-400); RDW Coefficient of Variation 14.1 % (11.5-14.5); RDW Standard Deviation 44.7 fL (36.4-46.3); Red Blood Count 3.75 M/uL (4.20-5.40); White Blood Count 19.14 K/ul (4.8-10.8)
[2024-02-05 08:08] LABS: Albumin Globulin Ratio 1.3 (0.9-2); Albumin Level 3.3 gm/dl (3.4-5.0); BUN Creatinine Ratio 13.4 (10-20); Bilirubin,Total 0.5 mg/dl (0.2-1.0); Calcium 8.6 mg/dl (8.6-10.3); Est GFR (African American) 106.9 ml/min; Est GFR (Non-African American) 92.2 ml/min; Globulin 2.6 gm/dl (2.5-4.0); Potassium 3.9 mmol/L (3.5-5.1); Total Protein 5.9 gm/dl (6.0-8.3)
[2024-02-05] MEDS: CHOLECALCIFEROL 25 MCG (1000 UNITS) TAB PO SCH (09:03)
--- NOTE | 2024-02-05 09:17 | Surgery Progress Note ---
Date of Service February 05, 2024 Assessment & Plan (1) Right upper quadrant abdominal pain: (2) Acute cholecystitis: Plan: POD # 1 s/p lap cholecystectomy avss postop pain controlled leukocytosis of 19k no n,v Plan: ADAT continue pain management as needed encourage ambulation and incentive spirometry continue medical management continue iv abx given persistent leukocytosis Admission and Anticipated Discharge Date Admission Date: February 03, 2024 Subjective feeling good having postop soreness at incisions, controlled preop pain resolved no n,v tolerating clears so far urinating without difficulty no chest pain or shortness of breath Physical Exam Constitutional: WD/WN, vitals as above + obese, cooperative and comfortable; no acute distress and not ill appearing Respiratory: normal respiratory effort, lungs clear to auscultation no respiratory distress, no labored breathing and no retractions Cardiovascular: Rate/Rhythm: regular rate and regular rhythm Gastrointestinal (Abdomen): Inspection/Auscultation: abdomen normal to inspection and + abdominal surgical incision (c/d/i with dermabond); abdomen not distended Percussion/Palpation: + abdomen tender (RUQ , mild at incision sites) and abdomen soft; no guarding, abdomen not rigid and abdomen not firm Skin: no rashes, warm and dry no jaundice Psychiatric: A+Ox3, euthymic affect Results & Data Vital Signs (Past 12 Hours) Vital Signs Temp Pulse Pulse Resp BP Pulse Ox O2 Del Method 02/05/24 09:02 120/70 02/05/24 07:08 36.8 C 81 16 106/64 93 Room Air 02/05/24 05:54 84 92 Room Air 02/05/24 02:58 91 H 25 H 94 02/05/24 02:00 37.6 C H 92 H 17 135/81 95 Nasal CPAP 02/04/24 22:26 37.4 C 91 H 18 112/66 95 CPAP 02/04/24 21:44 95 H 27 H 93 O2 Flow Rate 02/05/24 09:02 02/05/24 07:08 02/05/24 05:54 02/05/24 02:58 2 02/05/24 02:00 02/04/24 22:26 02/04/24 21:44 2 Laboratory Results 02/05/24 02/05/24 02/04/24 Range/Units 07:49 06:12 20:34 WBC 19.14 H (4.8-10.8) K/ul RBC 3.75 L (4.20-5.40) M/uL Hgb 10.9 L (12.0-16.0) g/dl Hct 32.6 L (37.0-47.0) % MCV 86.9 (80.0-100.0) fL MCH 29.1 (25.0-34.0) pg MCHC 33.4 (32.0-36.0) g/dL RDW Std Deviation 44.7 (36.4-46.3) fL RDW Coeff of Hermes 14.1 (11.5-14.5) % Plt Count 352 (130-400) K/uL MPV 9.9 (9.4-12.4) fL Sodium 138 (136-145) mmol/L Potassium 3.9 (3.5-5.1) mmol/L Chloride 107 (98-107) mmol/L Carbon Dioxide 26 (21-32) mmol/L Anion Gap 5 (3-11) BUN 9 (6-23) mg/dl Creatinine 0.67 (0.6-1.2) mg/dl Est Cr Clr Drug Dosing 84.0 ml/min Est GFR ( Amer) 106.9 ml/min Est GFR (Non-Af Amer) 92.2 ml/min BUN/Creatinine Ratio 13.4 (10-20) Glucose 131 H (70-99(Fasting)) mg/dl POC Glucose 127 H 160 H (70-99) mg/dl Calcium 8.6 (8.6-10.3) mg/dl Magnesium 2.0 (1.7-2.4) mg/dl Total Bilirubin 0.5 (0.2-1.0) mg/dl AST 46 H (13-39) U/L ALT 37 (7-52) U/L Alkaline Phosphatase 69 (34-104) U/L Total Protein 5.9 L (6.0-8.3) gm/dl Albumin 3.3 L (3.4-5.0) gm/dl Globulin 2.6 (2.5-4.0) gm/dl Albumin/Globulin Ratio 1.3 (0.9-2) 02/04/24 02/04/24 02/04/24 Range/Units 16:47 14:41 13:02 WBC (4.8-10.8) K/ul RBC (4.20-5.40) M/uL Hgb (12.0-16.0) g/dl Hct (37.0-47.0) % MCV (80.0-100.0) fL MCH (25.0-34.0) pg MCHC (32.0-36.0) g/dL RDW Std Deviation (36.4-46.3) fL RDW Coeff of Hermes (11.5-14.5) % Plt Count (130-400) K/uL MPV (9.4-12.4) fL Sodium (136-145) mmol/L Potassium (3.5-5.1) mmol/L Chloride (98-107) mmol/L Carbon Dioxide (21-32) mmol/L Anion Gap (3-11) BUN (6-23) mg/dl Creatinine (0.6-1.2) mg/dl Est Cr Clr Drug Dosing ml/min Est GFR ( Amer) ml/min Est GFR (Non-Af Amer) ml/min BUN/Creatinine Ratio (10-20) Glucose (70-99(Fasting)) mg/dl POC Glucose 141 H 148 H 125 H (70-99) mg/dl Calcium (8.6-10.3) mg/dl Magnesium (1.7-2.4) mg/dl Total Bilirubin (0.2-1.0) mg/dl AST (13-39) U/L ALT (7-52) U/L Alkaline Phosphatase (34-104) U/L Total Protein (6.0-8.3) gm/dl Albumin (3.4-5.0) gm/dl Globulin (2.5-4.0) gm/dl Albumin/Globulin Ratio (0.9-2) 02/04/24 Range/Units 12:05 WBC (4.8-10.8) K/ul RBC (4.20-5.40) M/uL Hgb (12.0-16.0) g/dl Hct (37.0-47.0) % MCV (80.0-100.0) fL MCH (25.0-34.0) pg MCHC (32.0-36.0) g/dL RDW Std Deviation (36.4-46.3) fL RDW Coeff of Hermes (11.5-14.5) % Plt Count (130-400) K/uL MPV (9.4-12.4) fL Sodium (136-145) mmol/L Potassium (3.5-5.1) mmol/L Chloride (98-107) mmol/L Carbon Dioxide (21-32) mmol/L Anion Gap (3-11) BUN (6-23) mg/dl Creatinine (0.6-1.2) mg/dl Est Cr Clr Drug Dosing ml/min Est GFR ( Amer) ml/min Est GFR (Non-Af Amer) ml/min BUN/Creatinine Ratio (10-20) Glucose (70-99(Fasting)) mg/dl POC Glucose 122 H (70-99) mg/dl Calcium (8.6-10.3) mg/dl Magnesium (1.7-2.4) mg/dl Total Bilirubin (0.2-1.0) mg/dl AST (13-39) U/L ALT (7-52) U/L Alkaline Phosphatase (34-104) U/L Total Protein (6.0-8.3) gm/dl Albumin (3.4-5.0) gm/dl Globulin (2.5-4.0) gm/dl Albumin/Globulin Ratio (0.9-2)
[2024-02-05] MEDS: oxyCODONE/ACETAMINOPHEN 5mg/325mg TAB PO PRN ×2 (09:24→20:10)
--- NOTE | 2024-02-05 16:54 | Hospitalist Progress Note ---
Date of Service February 05, 2024 Assessment & Plan (1) Acute cholecystitis: Plan: Patient is a 63 yr female who [facility] of hypothy[facility], HTN, diet controlled DM II, ERASMO on CPAP and other medical problems listed below who presents with abdominal pain started around 0330am. Acute cholecystitis Hydrops of the gallbladder Cholelithiasis --S/P Laparoscopic Cholecystectomy by on 02/04/2024 --Gall Bladder USD: Multiple gallstones with borderline gallbladder wall thickening. The technologist reported positive sonographic Lopez sign. Therefore, this raises the possibility of an early acute cholecystitis. Surgical consultation and/or nuclear medicine HIDA scan can be used for further evaluation. Normal caliber common bile duct. -- LFTs within normal limits Currently on Rocephin, Flagyl Appreciate surgery input Pain control Advance diet as tolerated Persistent leukocytosis (2) Diabetes mellitus, type 2: Plan: HbA1c 6.2 Diet controlled, no longer taking metformin Utilize insulin while hospitalized Monitor blood glucose levels (3) Hypothyroidism: Plan: Continue levothyroxine (4) Hypertension: Plan: Continue lisinopril Monitor (5) Hyperlipidemia: Plan: Statin HS DVT Px: Heparin SQ Code status: FULL CODE Admission and Anticipated Discharge Date Admission Date: February 03, 2024 Subjective Patient is seen and examined at bedside Abdominal pain is controlled Denies any nausea, vomiting, chest pain, dyspnea Tolerating current diet No other complaints Review of Systems Review of Systems: All systems reviewed & are unremarkable except as noted in Subjective Physical Exam Physical Exam: Physical Exam: Vitals signs as noted above General Appearance:Obese, no apparent distress Head: normocephalic, Atraumatic Eyes: normal inspection, EOMI Neck: supple, Trachea midline Respiratory/Chest: Normal breath sounds, CTA, No accessory muscle use Cardiovascular: S1, S2, No murmur Abdomen/GI:Soft, mild tender, bowel sounds present Extremities/Musculoskeletal:normal inspection, no edema Neurologic/Psych:AAOX3, grossly no focal neurological deficits Skin: normal color, warm Results & Data Results & Data Vital Signs (Past 12 Hours) Vital Signs Temp Pulse Resp BP Pulse Ox O2 Del Method 02/05/24 16:23 90 94 Room Air 02/05/24 15:38 37 C 92 H 16 111/67 92 Room Air 02/05/24 11:24 37 C 87 18 116/63 93 Room Air 02/05/24 11:23 37 C 89 16 116/63 95 Room Air 02/05/24 09:02 120/70 02/05/24 07:20 Room Air 02/05/24 07:08 36.8 C 81 16 106/64 93 Room Air 02/05/24 05:54 84 92 Room Air Laboratory Results Short CBC 02/05/24 Range/Units 06:12 WBC 19.14 H (4.8-10.8) K/ul Hgb 10.9 L (12.0-16.0) g/dl Hct 32.6 L (37.0-47.0) % Plt Count 352 (130-400) K/uL BMP 02/05/24 06:12 Sodium 138 Potassium 3.9 Chloride 107 Carbon Dioxide 26 BUN 9 Creatinine 0.67 Glucose 131 H Calcium 8.6 Liver Function 02/05/24 Range/Units 06:12 Total Bilirubin 0.5 (0.2-1.0) mg/dl AST 46 H (13-39) U/L ALT 37 (7-52) U/L Alkaline Phosphatase 69 (34-104) U/L Albumin 3.3 L (3.4-5.0) gm/dl
[2024-02-05] MEDS: HEPARIN SOD 5,000 UNIT/0.5 ML VIAL SQ SCH (20:10)
[2024-02-06 07:01] LABS: Hematocrit (blood only) 32.6 % (37.0-47.0); Hemoglobin 10.4 g/dl (12.0-16.0); Mean Corpuscular Hemoglobin 28.1 pg (25.0-34.0); Mean Corpuscular Hgb Conc 31.9 g/dL (32.0-36.0); Mean Corpuscular Volume 88.1 fL (80.0-100.0); Platelet Count 359 K/uL (130-400); RDW Coefficient of Variation 14.2 % (11.5-14.5); RDW Standard Deviation 45.9 fL (36.4-46.3); White Blood Count 17.27 K/ul (4.8-10.8)
[2024-02-06 07:26] LABS: Albumin Globulin Ratio 1.2 (0.9-2); Albumin Level 3.2 gm/dl (3.4-5.0); BUN Creatinine Ratio 17.6 (10-20); Bilirubin,Total 0.4 mg/dl (0.2-1.0); Calcium 8.4 mg/dl (8.6-10.3); Creatinine Clr Calc Pharmacy 66.2 ml/min; Est GFR (African American) 83.3 ml/min; Est GFR (Non-African American) 71.9 ml/min; Globulin 2.6 gm/dl (2.5-4.0); Magnesium 1.9 mg/dl (1.7-2.4); Potassium 3.8 mmol/L (3.5-5.1); Total Protein 5.8 gm/dl (6.0-8.3)
--- NOTE | 2024-02-06 10:00 | Surgery Progress Note ---
Date of Service February 06, 2024 Assessment & Plan (1) Right upper quadrant abdominal pain: (2) Acute cholecystitis: Plan: POD # 2 s/p lap cholecystectomy avss postop pain moderate leukocytosis of 17k, improving + nausea this am Plan: ADAT continue pain management as needed, encouraged patient to take pain medication to help control pain in order to ambulate and take deep breaths encourage ambulation and incentive spirometry continue medical management continue iv abx given persistent leukocytosis repeat am labs Dr. Patel covering this weekend Dr. eSrrato has seen patient agrees with above Admission and Anticipated Discharge Date Admission Date: February 03, 2024 Subjective + nausea this morning tolerated soft diet pain about 6/10, has not had pain medication since last evening ambulating hallway using incentive urinating without difficulty Physical Exam Constitutional: WD/WN, vitals as above + obese, cooperative and comfortable; no acute distress and not ill appearing Respiratory: no respiratory distress, no labored breathing and no retractions Gastrointestinal (Abdomen): Inspection/Auscultation: abdomen normal to inspection and + abdominal surgical incision (c/d/i with dermabond); abdomen not distended Percussion/Palpation: + abdomen tender (RUQ ) and abdomen soft; no guarding, abdomen not rigid and abdomen not firm Skin: no rashes, warm and dry no jaundice Psychiatric: Orientation: alert and oriented x 3 Results & Data Vital Signs (Past 12 Hours) Vital Signs Temp Pulse Pulse Resp BP Pulse Ox O2 Del Method 02/06/24 08:00 Room Air 02/06/24 07:57 37.4 C 88 88 18 107/60 96 Nasal Cannula 02/05/24 23:56 87 96 Nasal Cannula O2 Flow Rate 02/06/24 08:00 02/06/24 07:57 02/05/24 23:56 2 Laboratory Results 02/06/24 02/06/24 02/05/24 Range/Units 07:39 06:02 20:04 WBC 17.27 H (4.8-10.8) K/ul RBC 3.70 L (4.20-5.40) M/uL Hgb 10.4 L (12.0-16.0) g/dl Hct 32.6 L (37.0-47.0) % MCV 88.1 (80.0-100.0) fL MCH 28.1 (25.0-34.0) pg MCHC 31.9 L (32.0-36.0) g/dL RDW Std Deviation 45.9 (36.4-46.3) fL RDW Coeff of Hermes 14.2 (11.5-14.5) % Plt Count 359 (130-400) K/uL MPV 10.0 (9.4-12.4) fL Sodium 137 (136-145) mmol/L Potassium 3.8 (3.5-5.1) mmol/L Chloride 105 (98-107) mmol/L Carbon Dioxide 27 (21-32) mmol/L Anion Gap 5 (3-11) BUN 15 (6-23) mg/dl Creatinine 0.85 (0.6-1.2) mg/dl Est Cr Clr Drug Dosing 66.2 ml/min Est GFR ( Amer) 83.3 ml/min Est GFR (Non-Af Amer) 71.9 ml/min BUN/Creatinine Ratio 17.6 (10-20) Glucose 102 H (70-99(Fasting)) mg/dl POC Glucose 97 104 H (70-99) mg/dl Calcium 8.4 L (8.6-10.3) mg/dl Magnesium 1.9 (1.7-2.4) mg/dl Total Bilirubin 0.4 (0.2-1.0) mg/dl AST 31 (13-39) U/L ALT 35 (7-52) U/L Alkaline Phosphatase 72 (34-104) U/L Total Protein 5.8 L (6.0-8.3) gm/dl Albumin 3.2 L (3.4-5.0) gm/dl Globulin 2.6 (2.5-4.0) gm/dl Albumin/Globulin Ratio 1.2 (0.9-2) 02/05/24 02/05/24 Range/Units 16:40 11:33 WBC (4.8-10.8) K/ul RBC (4.20-5.40) M/uL Hgb (12.0-16.0) g/dl Hct (37.0-47.0) % MCV (80.0-100.0) fL MCH (25.0-34.0) pg MCHC (32.0-36.0) g/dL RDW Std Deviation (36.4-46.3) fL RDW Coeff of Hermes (11.5-14.5) % Plt Count (130-400) K/uL MPV (9.4-12.4) fL Sodium (136-145) mmol/L Potassium (3.5-5.1) mmol/L Chloride (98-107) mmol/L Carbon Dioxide (21-32) mmol/L Anion Gap (3-11) BUN (6-23) mg/dl Creatinine (0.6-1.2) mg/dl Est Cr Clr Drug Dosing ml/min Est GFR ( Amer) ml/min Est GFR (Non-Af Amer) ml/min BUN/Creatinine Ratio (10-20) Glucose (70-99(Fasting)) mg/dl POC Glucose 72 79 (70-99) mg/dl Calcium (8.6-10.3) mg/dl Magnesium (1.7-2.4) mg/dl Total Bilirubin (0.2-1.0) mg/dl AST (13-39) U/L ALT (7-52) U/L Alkaline Phosphatase (34-104) U/L Total Protein (6.0-8.3) gm/dl Albumin (3.4-5.0) gm/dl Globulin (2.5-4.0) gm/dl Albumin/Globulin Ratio (0.9-2)
[2024-02-06] MEDS: DOCUSATE SODIUM 100 MG CAP PO SCH (12:40)
--- NOTE | 2024-02-06 17:44 | Hospitalist Progress Note ---
Date of Service February 06, 2024 Assessment & Plan (1) Acute cholecystitis: Plan: Patient is a 63 yr female [facility] of hypothy[facility], HTN, diet controlled DM II, ERASMO on CPAP and other medical problems listed below who presents with abdominal pain started around 0330am. Acute cholecystitis Hydrops of the gallbladder Cholelithiasis --S/P Laparoscopic Cholecystectomy by on 02/04/2024 --Gall Bladder USD: Multiple gallstones with borderline gallbladder wall thickening. The technologist reported positive sonographic Lopez sign. Therefore, this raises the possibility of an early acute cholecystitis. Surgical consultation and/or nuclear medicine HIDA scan can be used for further evaluation. Normal caliber common bile duct. -- LFTs within normal limits Currently on Rocephin, Flagyl Appreciate surgery input Pain control Tolerating current diet leukocytosis slowly improving Surgery following Added bowel regimen Encouraged to ambulate (2) Diabetes mellitus, type 2: Plan: HbA1c 6.2 Diet controlled, no longer taking metformin Utilize insulin while hospitalized Monitor blood glucose levels (3) Hypothyroidism: Plan: Continue levothyroxine (4) Hypertension: Plan: Continue lisinopril Monitor (5) Hyperlipidemia: Plan: Statin HS DVT Px: Heparin SQ Code status: FULL CODE Admission and Anticipated Discharge Date Admission Date: February 03, 2024 Subjective Patient is seen and examined at bedside Pain at surgical site is controlled Reports constipation Tolerating current diet Denies any nausea, vomiting, chest pain, dyspnea Review of Systems Review of Systems: All systems reviewed & are unremarkable except as noted in Subjective Physical Exam Physical Exam: Physical Exam: Vitals signs as noted above General Appearance:Obese, no apparent distress Head: normocephalic, Atraumatic Eyes: normal inspection, EOMI Neck: supple, Trachea midline Respiratory/Chest: Normal breath sounds, CTA, No accessory muscle use Cardiovascular: S1, S2, No murmur Abdomen/GI:Soft, non tender, bowel sounds present Extremities/Musculoskeletal:normal inspection, no edema Neurologic/Psych:AAOX3, grossly no focal neurological deficits Skin: normal color, warm Results & Data Results & Data Vital Signs (Past 12 Hours) Vital Signs Temp Pulse Pulse Resp BP Pulse Ox O2 Del Method 02/06/24 14:55 37.2 C 91 H 16 117/74 91 Room Air 02/06/24 08:00 Room Air 02/06/24 07:57 37.4 C 88 18 107/60 96 Nasal Cannula O2 Flow Rate 02/06/24 14:55 02/06/24 08:00 02/06/24 07:57 2 Laboratory Results Short CBC 02/06/24 Range/Units 06:02 WBC 17.27 H (4.8-10.8) K/ul Hgb 10.4 L (12.0-16.0) g/dl Hct 32.6 L (37.0-47.0) % Plt Count 359 (130-400) K/uL BMP 02/06/24 06:02 Sodium 137 Potassium 3.8 Chloride 105 Carbon Dioxide 27 BUN 15 Creatinine 0.85 Glucose 102 H Calcium 8.4 L Liver Function 02/06/24 Range/Units 06:02 Total Bilirubin 0.4 (0.2-1.0) mg/dl AST 31 (13-39) U/L ALT 35 (7-52) U/L Alkaline Phosphatase 72 (34-104) U/L Albumin 3.2 L (3.4-5.0) gm/dl
--- NOTE | 2024-02-07 05:48 | Surgery Progress Note ---
Date of Service February 07, 2024 Assessment & Plan (1) Acute cholecystitis: Plan: Status post laparoscopic cholecystectomy on 02/04/2024 (postop day #3) Continue analgesics as needed Continue antiemetics as needed Continue diet as tolerated Continue antibiotics in the form of Rocephin and Flagyl while patient is hospitalized As noted previously in this note patient had low-grade fevers most recently on 02/05/2024 which have resolved. If any fever recurrence noted will consider checking chest x-ray urinalysis for further evaluation. Patient was noted to have leukocytosis on yesterday's labs. A.m. labs are ordered for this morning but are pending Encourage use of incentive spirometer Continue to mobilize as able Subcutaneous heparin is in place for DVT prevention as above. pt feeling ok. wbc down to 12,000. david diet. ok for d/c [facility]. instructions discussed. Admission and Anticipated Discharge Date Admission Date: February 03, 2024 Subjective Patient is resting comfortably in bed. She notes that her pain control has improved since surgery. She is tolerating solid diet without exacerbating abdominal pain. She denies any nausea or vomiting. She notes her bowels have moved since her surgery. She has ambulated small amount since her surgery. She notes that she is voiding without difficulty. She denies shortness of breath Patient noted to have episode of low-grade fever most recently at 2 AM on 02/05/2024 which has since resolved. Physical Exam Gastrointestinal (Abdomen): Abdomen is soft and nondistended. 4 laparoscopic incisions are clean, dry, intact. Bowel sounds are present. Patient has appropriate tenderness near surgical incisions. Results & Data Vital Signs (Past 12 Hours) Vital Signs Temp Pulse Pulse Resp BP Pulse Ox O2 Del Method 02/07/24 02:12 14 93 02/06/24 22:09 95 H 22 94 02/06/24 21:28 Nasal Cannula 02/06/24 20:16 85 94 Nasal Cannula 02/06/24 20:06 37.1 C 92 H 16 109/63 87 L Room Air O2 Flow Rate 02/07/24 02:12 2 02/06/24 22:09 2 02/06/24 21:28 2 02/06/24 20:16 2 02/06/24 20:06 PG Care Time/CCT Total # of Minutes Spent Total Time Spent with Patient: Total time spent is greater than 50% in coordination of care (as documented) at patient's floor/unit and/or counseling patient: Coding Level of Care Code 14485 Post Operative Follow-Up Diagnoses Acute cholecystitis K81.0
[2024-02-07 06:52] LABS: Hematocrit (blood only) 30.9 % (37.0-47.0); Mean Corpuscular Hemoglobin 28.7 pg (25.0-34.0); Mean Corpuscular Hgb Conc 32.4 g/dL (32.0-36.0); Mean Corpuscular Volume 88.5 fL (80.0-100.0); Mean Platelet Volume 9.6 fL (9.4-12.4); Platelet Count 366 K/uL (130-400); RDW Coefficient of Variation 14.2 % (11.5-14.5); RDW Standard Deviation 45.7 fL (36.4-46.3); Red Blood Count 3.49 M/uL (4.20-5.40); White Blood Count 12.58 K/ul (4.8-10.8)
[2024-02-07 07:16] LABS: BUN Creatinine Ratio 15.9 (10-20); Calcium 8.3 mg/dl (8.6-10.3); Creatinine Clr Calc Pharmacy 89.4 ml/min; Est GFR (African American) 109.1 ml/min; Est GFR (Non-African American) 94.1 ml/min; Potassium 3.5 mmol/L (3.5-5.1)
--- NOTE | 2024-02-07 13:12 | Hospitalist Progress Note ---
Date of Service February 07, 2024 Assessment & Plan (1) Acute cholecystitis: Plan: Patient is a 63 yr female who [facility] of hypothyroidism, HTN, diet controlled DM II, ERASMO on CPAP and other medical problems listed below who presents with abdominal pain started around 0330am. Acute cholecystitis Hydrops of the gallbladder Cholelithiasis --S/P Laparoscopic Cholecystectomy by on 02/04/2024 --Gall Bladder USD: Multiple gallstones with borderline gallbladder wall thickening. The technologist reported positive sonographic Lopez sign. Therefore, this raises the possibility of an early acute cholecystitis. Surgical consultation and/or nuclear medicine HIDA scan can be used for further evaluation. Normal caliber common bile duct. -- LFTs within normal limits Currently on Rocephin, Flagyl>> transition to p.o. antibiotics to complete the course Appreciate surgery input Pain control Tolerating current diet leukocytosis trended down Constipation resolved Plan to be discharged home today Advised to follow-up with surgery and PCP on discharge (2) Diabetes mellitus, type 2: Plan: HbA1c 6.2 Diet controlled, no longer taking metformin Utilize insulin while hospitalized Monitor blood glucose levels (3) Hypothyroidism: Plan: Continue levothyroxine (4) Hypertension: Plan: Continue lisinopril Monitor (5) Hyperlipidemia: Plan: Statin HS DVT Px: Heparin SQ Code status: FULL CODE Admission and Anticipated Discharge Date Admission Date: February 03, 2024 Subjective Patient is seen and examined at bedside Doing much better today Had bowel movement Abdominal pain continues to improve Tolerating current diet Denies any chest pain, dyspnea, dizziness, nausea, vomiting Plan to be discharged home today Review of Systems Review of Systems: All systems reviewed & are unremarkable except as noted in Subjective Physical Exam Physical Exam: Physical Exam: Vitals signs as noted above General Appearance:Obese, no apparent distress Head: normocephalic, Atraumatic Eyes: normal inspection, EOMI Neck: supple, Trachea midline Respiratory/Chest: Normal breath sounds, CTA, No accessory muscle use Cardiovascular: S1, S2, No murmur Abdomen/GI:Soft, non tender, bowel sounds present Extremities/Musculoskeletal:normal inspection, no edema Neurologic/Psych:AAOX3, grossly no focal neurological deficits Skin: normal color, warm Results & Data Results & Data Vital Signs (Past 12 Hours) Vital Signs Temp Pulse Resp BP Pulse Ox O2 Del Method O2 Flow Rate 05/04/24 08:15 Room Air 02/07/24 07:31 37.2 C 94 H 16 125/74 92 Room Air 02/07/24 02:12 14 93 2 Laboratory Results Short CBC 02/07/24 Range/Units 05:32 WBC 12.58 H (4.8-10.8) K/ul Hgb 10.0 L (12.0-16.0) g/dl Hct 30.9 L (37.0-47.0) % Plt Count 366 (130-400) K/uL BMP 02/07/24 05:32 Sodium 137 Potassium 3.5 Chloride 103 Carbon Dioxide 27 BUN 10 Creatinine 0.63 Glucose 95 Calcium 8.3 L
--- NOTE | 2024-02-07 13:19 | Discharge Summary ---
Date of Service February 07, 2024 Admission HPI Per Admitting Provider This is a 63[facility] F [facility] of hyp[facility], HTN, diet controlled DM II, ERASMO on CPAP and other medical problems listed below who presents with abdominal pain started around 0330am. Abdominal pain is sharp, constant and located in RUQ radiating across to left side, described as persistent. + Chills. Decreased appetite. Vomited this AM once but not since arrival. Still nauseous. No CP, SOB, dysuria, diarrhea or constipation. Formed bowel movement this morning. History of bladder surgery. Denies PO intake today. Still in pain following fentanyl given in ED. Admission Exam Per Admitting Provider GENERAL APPEARANCE: AxOx4, mild distress/uncomfortable HEENT: NC, AT. MMM. EOMI, clear conjunctiva, oropharynx clear. NECK: Supple without lymphadenopathy. No stiffness or restricted ROM. HEART: Normal rate and regular rhythm, normal S1/S1, no m/r/g LUNGS: CTAB, moving air well. No crackles or wheezes are heard. ABDOMEN: Soft, nondistended with good bowel sounds heard, tenderness along ROX and epigastrium BACK: No CVAT, no obvious deformity. EXTREMITIES: Without cyanosis, clubbing or edema. NEUROLOGICAL: Grossly nonfocal. Alert and oriented, moving all 4 extremities. CN not formally tested but appear grossly intact. Skin: Warm and dry without any rash. Principal Diagnosis Acute cholecystitis Hydrops of the gallbladder Cholelithiasis Discharge Data Allergies Allergy/AdvReac Type Severity Reaction Status Date / Time No Known Drug Allergies Allergy Verified 03/06/21 13:00 Consultations 02/03/24 12:52 Consult General Surgery Stat 02/03/24 13:23 ED Decision to Admit Stat Procedures Performed Operation Date: 02/04/24 13:00 Actual Procedures p Laparoscopic Cholecystectomy(Not Applicable) - Jv Serrato MD Laboratory Results WBC 12.58 K/ul (4.8-10.8) H 02/07/24 05:32 RBC 3.49 M/uL (4.20-5.40) L 02/07/24 05:32 Hgb 10.0 g/dl (12.0-16.0) L 02/07/24 05:32 Hct 30.9 % (37.0-47.0) L 02/07/24 05:32 MCV 88.5 fL (80.0-100.0) 02/07/24 05:32 MCH 28.7 pg (25.0-34.0) 02/07/24 05:32 MCHC 32.4 g/dL (32.0-36.0) 02/07/24 05:32 RDW Std Deviation 45.7 fL (36.4-46.3) 02/07/24 05:32 RDW Coeff of Hermes 14.2 % (11.5-14.5) 02/07/24 05:32 Plt Count 366 K/uL (130-400) 02/07/24 05:32 MPV 9.6 fL (9.4-12.4) 02/07/24 05:32 Immature Gran % (Auto) 0.4 % 02/03/24 10:51 Neut % (Auto) 83.6 % 02/03/24 10:51 Lymph % (Auto) 11.1 % 02/03/24 10:51 Mcmullen % (Auto) 4.3 % 02/03/24 10:51 Eos % (Auto) 0.2 % 02/03/24 10:51 Baso % (Auto) 0.4 % 02/03/24 10:51 Neut # (Auto) 12.17 K/uL (1.40-6.50) H 02/03/24 10:51 Lymph # (Auto) 1.61 K/uL (1.20-3.40) 02/03/24 10:51 Mcmullen # (Auto) 0.63 K/uL (0.11-0.59) H 02/03/24 10:51 Eos # (Auto) 0.03 K/uL (0.00-0.50) 02/03/24 10:51 Baso # (Auto) 0.06 K/uL (0.00-0.20) 02/03/24 10:51 Immature Gran # (Auto) 0.06 K/uL (0.01-0.20) 02/03/24 10:51 Sodium 137 mmol/L (136-145) 02/07/24 05:32 Potassium 3.5 mmol/L (3.5-5.1) 02/07/24 05:32 Chloride 103 mmol/L (98-107) 02/07/24 05:32 Carbon Dioxide 27 mmol/L (21-32) 02/07/24 05:32 Anion Gap 7 (3-11) 02/07/24 05:32 BUN 10 mg/dl (6-23) 02/07/24 05:32 Creatinine 0.63 mg/dl (0.6-1.2) 02/07/24 05:32 Est Cr Clr Drug Dosing 89.4 ml/min 02/07/24 05:32 Est GFR ( Amer) 109.1 ml/min 02/07/24 05:32 Est GFR (Non-Af Amer) 94.1 ml/min 02/07/24 05:32 BUN/Creatinine Ratio 15.9 (10-20) 02/07/24 05:32 Glucose 95 mg/dl (70-99(Fasting)) 02/07/24 05:32 POC Glucose 102 mg/dl (70-99) H 02/07/24 11:30 Estimat Average Glucose 131 mg/dl 02/04/24 07:11 Hemoglobin A1c 6.2 % (4.5-5.6) H 02/04/24 07:11 Calcium 8.3 mg/dl (8.6-10.3) L 02/07/24 05:32 Magnesium 1.9 mg/dl (1.7-2.4) 02/06/24 06:02 Total Bilirubin 0.4 mg/dl (0.2-1.0) 02/06/24 06:02 AST 31 U/L (13-39) 02/06/24 06:02 ALT 35 U/L (7-52) 02/06/24 06:02 Alkaline Phosphatase 72 U/L (34-104) 02/06/24 06:02 Troponin I High Sens 3.3 pg/ml (0-14) 02/03/24 10:51 Total Protein 5.8 gm/dl (6.0-8.3) L 02/06/24 06:02 Albumin 3.2 gm/dl (3.4-5.0) L 02/06/24 06:02 Globulin 2.6 gm/dl (2.5-4.0) 02/06/24 06:02 Albumin/Globulin Ratio 1.2 (0.9-2) 02/06/24 06:02 Lipase 10 U/L (11-82) L 02/03/24 10:51 Urine Color Dark Yellow 02/03/24 10:51 Urine Appearance Turbid (Clear) A 02/03/24 10:51 Urine pH 5.5 (4.5-7.5) 02/03/24 10:51 Ur Specific [place] 1.024 (1.000-1.030) 02/03/24 10:51 Urine Protein Negative (Negative) 02/03/24 10:51 Urine Glucose (UA) Negative (Negative) 02/03/24 10:51 Urine Ketones Trace (Negative) H 02/03/24 10:51 Urine Blood Negative (Negative) 02/03/24 10:51 Urine Nitrite Negative (Negative) 02/03/24 10:51 Urine Bilirubin Negative (Negative) 02/03/24 10:51 Urine Urobilinogen Negative (Negative) 02/03/24 10:51 Ur Leukocyte Esterase Negative (Negative) 02/03/24 10:51 Urine WBC (Auto) 0-5 /hpf (0-5) 02/03/24 10:51 Urine RBC (Auto) 3-5 /hpf (0-2) H 02/03/24 10:51 U Hyaline Cast (Auto) 0-2 /lpf (0-2) 02/03/24 10:51 U Epithel Cells (Auto) 3-5 /hpf (0-2) H 02/03/24 10:51 Urine Bacteria (Auto) None Seen (None Seen) 02/03/24 10:51 Impressions Chest X-Ray 02/03/24 11:00 SINGLE VIEW CHEST CLINICAL HISTORY: Upper abdominal pain. Atypical chest pain. FINDINGS: An AP, portable, upright chest radiograph is obtained. No prior studies are available for comparison at the time of dictation. The cardiomediastinal silhouette is unremarkable. The lungs and pleural spaces are clear. No pneumothorax is seen. The bony thorax is grossly intact. IMPRESSION: No active disease in the chest. ACT 112: Negative or not required by law. Electronically signed by: Tamir Wyatt M.D. 02/03/2024 11:22 AM Gallbladder Ultrasound 02/03/24 11:00 ABDOMINAL ULTRASOUND, RIGHT UPPER QUADRANT HISTORY: Nausea. Vomiting. Generalized abdominal pain.. COMPARISON: None. FINDINGS: Pancreas: The pancreatic tail is obscured by overlying bowel gas. The remaining portions of the pancreas are within normal limits. Liver: Unremarkable. Gallbladder: Multiple stones. Borderline gallbladder wall thickening at 3 mm. The technologist reported a positive sonographic Lopez sign. Therefore, this raises the possibility of an early acute cholecystitis. CBD: 3 mm. Right kidney: No hydronephrosis. IMPRESSION: 1. Multiple gallstones with borderline gallbladder wall thickening. The technologist reported positive sonographic Lopez sign. Therefore, this raises the possibility of an early acute cholecystitis. Surgical consultation and/or nuclear medicine HIDA scan can be used for further evaluation. 2. Normal caliber common bile duct. ACT 112: Negative or not required by law. Electronically signed by: Karl Segundo M.D. 02/03/2024 12:14 PM KUB X-Ray 02/03/24 11:00 KUB HISTORY: Acute right upper quadrant abdominal pain RU pain COMPARISON: None. FINDINGS: Mild gaseous distention of the stomach. Moderate fecal retention in the right hemicolon. Nonobstructive bowel gas pattern. Renal shadows are obscured by bowel gas. No renal calculi. No ureteral calculi. No pneumoperitoneum or pneumatosis. No fracture. IMPRESSION: Nonobstructive bowel gas pattern. ACT 112: Negative or not required by law. The above report was generated using voice recognition software. It may contain grammatical, syntax or spelling errors. Electronically signed by: Cristobal Sellers M.D. 02/03/2024 12:00 PM Ordered Studies 02/03/24 11:00 gallbladder Stat Hospital Course (1) Acute cholecystitis: Patient is a 63 yr female who follows with the [facility] with a PMH of hypothyroidism, HTN, diet controlled DM II, ERASMO on CPAP and other medical problems listed below who presents with abdominal pain started around 0330am. Acute cholecystitis Hydrops of the gallbladder Cholelithiasis --S/P Laparoscopic Cholecystectomy by on 02/04/2024 --Gall Bladder USD: Multiple gallstones with borderline gallbladder wall thickening. The technologist reported positive sonographic Lopez sign. Therefore, this raises the possibility of an early acute cholecystitis. Surgical consultation and/or nuclear medicine HIDA scan can be used for further evaluation. Normal caliber common bile duct. -- LFTs within normal limits Currently on Rocephin, Flagyl>> transition to p.o. antibiotics to complete the course Appreciate surgery input Pain control Tolerating current diet leukocytosis trended down Constipation resolved Plan to be discharged home today Advised to follow-up with surgery and PCP on discharge (2) Diabetes mellitus, type 2: HbA1c 6.2 Diet controlled, no longer taking metformin Utilize insulin while hospitalized Monitor blood glucose levels (3) Hypothyroidism: Continue levothyroxine (4) Hypertension: Continue lisinopril Monitor (5) Hyperlipidemia: Statin HS DVT Px: Heparin SQ Code status: FULL CODE Total Time Total Time Spent Total Time Spent (In Minutes): 56 minutes Discharge Plan Discharge Items Patient Disposition: Home - Self-Care Reason For Visit: CHOLECYSTITIS Discharge Diagnosis: Acute cholecystitis Hydrops of the gallbladder Cholelithiasis Activity: Per Instructions section Exercise/Sports: Wait until after follow-up appointment Non-emergency contact: Primary Care Provider and Surgeon Call non-emergency contact if: you have any medication questions, your symptoms worsen, your pain is concerning for you and you have a fever Follow-up/Referrals: Lilli Obregon PA-C [Physician Raise Driller] - Anjum Ovalle MD [Outside Practitioners] - Diet: Carb Consistent or DM2 Addtl Attending Provider Instructions: Follow-up with your primary care physician in 1 week Follow-up with your surgeon as recommended -- Complete antibiotic course as prescribed Seek immediate medical attention if your symptoms reoccur or worsen Please take all medications as instructed on discharge list below. Please call if you have any questions or problems. You can reach a [facility] hospitalist on duty at [facility] 24 hours a day by calling [phone] Addtl [employer] Provider Instructions: Post-Surgical ~Discharge Instructions Activity Recommendations: - lifting limitation: (20 pounds for 3-4 weeks), - exercise/sex/sports limit: (nonstrenuous for 2 weeks), - driving or machine use limit: (none for 1 week or until pain free and no longer taking narcotic pain medication), - Shower/bathe limit: (may shower, no submerging incisions underwater for 2 weeks) Diet: - Resume previous diet SPECIAL CARE INSTRUCTIONS: - May shower. Let water run over area and pat dry. - Leave surgical glue on incisions, this will fall off on its own. - Call the surgeon's office with any questions or concerns - - (ex. temperature higher than 101 degrees F, excessive bleeding or pain). MEDICATIONS: - Resume previous medications unless instructed otherwise by your surgeon. - May take extra strength Tylenol and Ibuprofen as needed for mild to moderate pain. - 650 mg Tylenol every 6 hours as needed - 600 mg Ibuprofen every 6 hours as needed (take with food) - Percocet 1 every 6 hours, as needed for moderate to severe pain - Recommend daily stool softener (Colace) while taking narcotic pain medication to prevent constipation or straining. Drink plenty of water daily. FOLLOW UP VISIT: - If not already scheduled, please call the office to schedule a two week follow-up appointment. Office number Pending Studies at Discharge: No Stand-Alone Forms: My [facility], Smoking Cessation Medications and DC Order Prescriptions: New oxycodone-acetaminophen 5-325 mg tablet 1 tab PO Q6H PRN (Reason: pain) Qty: 10 0RF polyethylene glycol 3350 [Miralax] 17 gram Powder In Packet 17 g PO DAILY PRN (Reason: Constipation) Qty: 15 0RF docusate sodium 100 mg Capsule 100 mg PO BID PRN (Reason: constipation ) Qty: 30 0RF cefdinir 300 mg capsule 300 mg PO BID Qty: 8 0RF metronidazole 500 mg tablet 500 mg PO Q8H Qty: 12 0RF Continued aspirin 81 mg tablet 81 mg PO QAM lisinopril 10 mg tablet 10 mg PO QAM levothyroxine 50 mcg tablet 50 mcg PO QAM atorvastatin 20 mg Tablet 20 mg PO HS cholecalciferol (vitamin D3) [Vitamin D3] 25 mcg (1,000 unit) Tablet 25 mcg PO QAM estradiol 4 mcg Insert 4 mcg VAGINAL DAILY Discharge Orders: Discharge Order (Routine); Ordered 02/07/24 Ordered By: Suhas Malloy/Other Patient Handouts: High Blood Sugar (Hyperglycemia), Hypoglycemia (Low Blood Sugar), Managing Type 2 Diabetes Admission Data Admit Date/Time: 02/03/24 15:40 Attending Provider: Suhas Helm Admit Provider: Zoraida Rojas Primary Care Provider: PCP,NO Other Providers: [facility]; Jv Serrato; Zoraida Rojas
== END 2024-02-07 14:22 | disposition home or self-care (01) | DRG 418 ==
LOC: ED 10:42 → 3W 15:40 → SUATTDRO 15:40 → 3W 16:36